=== PATIENT | female | born 1940 | race Caucasian/White ===

== ENCOUNTER 2017-06-13 16:20 | Inpatient (IN) ==
[2017-06-13 17:13] LABS: Bilirubin,Urine Small (Negative); Blood,Urine Moderate (Negative); Clarity,Urine Cloudy (Clear); Color,Urine Dark Yellow (Yellow); Glucose,Urine (UA) Normal (Normal); Ketones,Urine 15 mg/dL (Negative); Leukocyte Esterase,Urine Negative (Negative); Nitrite,Urine Negative (Negative); Protein,Urine 100 mg/dL (Neg-Trace); Specific Gravity,Urine > 1.030 (1.010-1.025); Urobilinogen,Urine Normal (Normal)
[2017-06-13 17:16] LABS: Bacteria,Urine None Seen per hpf (None-Few); Hyaline Casts,Urine None Seen per lpf (None-Few); Squamous Epithelial Cell,Urine Many per lpf (None-Few)
[2017-06-13 17:57] LABS: Uric Acid Crystals,Urine Present
[2017-06-13] MEDS ORDERED: Ondansetron 4 MG/2 ML VIAL IVP ONE (18:41)
[2017-06-13] MEDS ORDERED: 0.9 % Sodium Chloride 500 ML IVC ONE (18:42)
--- NOTE | 2017-06-13 18:43 | Emergency Department Note ---
Disposition Clinical Impression: Pneumonia Qualifiers: Laterality: right Lung location: lower lobe of lung Sepsis Qualifiers: Sepsis type: sepsis due to unspecified organism Qualified Code(s): A41.9 - Sepsis, unspecified organism Disposition: Admitted As Inpatient Condition: Fair Time of Disposition: 20:32 General Adult HPI - General Chief complaint: ED Abdominal Pain Stated complaint: ABD Pain,Dizzy Time Seen by Provider: 06/13/17 18:21 Source: patient Limitations: no limitations Nursing Notes Reviewed: Yes Vital Signs Reviewed: Yes - History of Present Illness HPI Narrative: Patient presents to emergency Department not feeling well. Symptoms started a couple of days ago. She is complaining of sharp pains in the left side of her head. They come and go. They are more prominent yesterday and the day before they are today. Currently not having them. Dry cough. Nausea. States she got dizzy and fell out of bed at one point. She has no abdominal pain and vomiting but she has not had any more. No urinary symptoms. She has some pain and left-sided of her back after she got dizzy and fell. There was no loss of consciousness. She denies any chest pain or difficulty breathing. She is not having abdominal pain or head pain at this time. Pain Scale: 8 - Related Data Home Medications Medication Instructions Recorded Confirmed Aspirin Enteric Coated [Aspirin EC] 81 mg PO DAILY #0 08/17/15 06/13/17 Atorvastatin [Lipitor] 40 mg PO HS #0 08/17/15 06/13/17 Levothyroxine [Synthroid] 100 mcg PO 0630 #0 08/17/15 06/13/17 Mirtazapine [Remeron] 45 mg PO HS #0 08/17/15 06/13/17 Sertraline [Zoloft] 150 mg PO DAILY #0 08/17/15 06/13/17 Albuterol Sulfate [Proair Hfa] 2 puff IH Q4H PRN 06/13/17 06/13/17 Esomeprazole Magnesium [Nexium] 40 mg PO DAILY 06/13/17 06/13/17 Gabapentin [Neurontin] 600 mg PO TID 06/13/17 06/13/17 Ipratropium [Atrovent Inhaler] 2 puff IH QID 06/13/17 06/13/17 Linaclotide [Linzess] 290 mcg PO DAILY 06/13/17 06/13/17 Megestrol Acetate [Megace] 40 mg PO TID 06/13/17 06/13/17 clonazePAM [Klonopin] 1 mg PO BID 06/13/17 06/13/17 Previous Rx's Medication Instructions Recorded Multivitamin [Multi-Day Vitamins] 1 each PO DAILY #30 tablet 08/24/15 Allergies Allergy/AdvReac Type Severity Reaction Status Date / Time No Known Allergies Allergy Verified 08/16/15 21:23 All systems ED: reviewed and negative except as stated. Constitutional: Denies: fever Cardiovascular: Denies: chest pain, palpitations Respiratory: Reports: cough. Denies: dyspnea, wheezes Gastrointestinal: Reports: nausea, vomiting. Denies: abdominal pain, diarrhea Musculoskeletal: Denies: back pain, neck pain Neurological: Reports: weakness. Denies: headache Past Medical History - Past Medical History Attestation: Yes The following information was validated with the patient. 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 Neurologically intact. No facial asymmetry. Abdomen soft. Lungs clear. She has a small abrasion over the left side of her back. No bony tenderness. No tenderness with palpation over the left confucianism. - General Limitations: no limitations General appearance: alert, in no apparent distress - Head Head exam: atraumatic, normocephalic - Eye Eye exam: Present: normal appearance - ENT ENT exam: normal exam, normal oropharynx, mucous membranes dry - Neck Neck exam: Present: normal inspection - Chest Chest inspection: Present: normal inspection, symmetric chest wall rise - Respiratory Respiratory exam: Present: normal lung sounds bilaterally - Cardiovascular Cardiovascular exam: Present: regular rate, normal rhythm, normal heart sounds - Abdominal Exam Abdominal exam: Present: soft, Non-Tender - Back Exam Back exam: Present: full ROM, other. Absent: muscle spasm, vertebral tenderness - Neurological Exam Neurological exam: Present: alert, oriented X3 - Psychiatric Psychiatric exam: Present: normal affect, normal mood - Skin Skin exam: Present: warm, dry Course Course Narrative: Patient with multiple complaints. Patient has a history of chronic renal insufficiency. We will check some basic labs. We will check a sedimentation rate evaluate her for temporal arteritis. Check a head CT. Tenderness in her back is not over her spine. Do not believe she needs any imaging of this area. IV fluids and nausea medicine. We will reevaluate. - Consultations Consultation #1: Dr Ruiz accepts for admission Time: 20:45 Vital Signs Temperature 97.4 F L 06/13/17 16:48 Pulse Rate 73 06/13/17 16:48 Respiratory Rate 16 06/13/17 16:48 Blood Pressure 101/58 06/13/17 16:48 O2 Sat by Pulse Oximetry 100 06/13/17 16:48 Temperature 97.4 F L 06/13/17 16:48 Pulse Rate 102 06/13/17 20:30 Respiratory Rate 20 06/13/17 20:30 Blood Pressure 116/49 06/13/17 20:30 O2 Sat by Pulse Oximetry 98 06/13/17 20:30 Oxygen Delivery Oxygen Delivery Room Air Medical Decision Making - [facility] Narrative Medical decision making narrative: Patient has a right lower infiltrate. She has a white count of 15,000 with an 8 % bandemia. Heart rate in the 90s. She meets sepsis criteria. Starting IV antibiotic. She will be admitted to the hospital. - Medical Records Medical records reviewed: Yes I reviewed the patient's medical records. - Lab Data Lab results reviewed: Yes I reviewed the patient's lab results. Result diagrams: 06/13/17 18:30 06/13/17 18:30 Lab Results 06/13/17 06/13/17 06/13/17 Range/Units 16:50 18:30 18:30 WBC 15.7 H (4.3-11.1) K/mcL RBC 3.86 (3.82-4.97) M/mcL Hgb 12.2 (11.5-15.4) g/dL Hct 36.3 (35.3-44.9) % MCV 94.0 (83.0-100.0) fL MCH 31.6 (28.0-33.3) pg MCHC 33.6 (31.6-35.5) g/dL RDW 12.8 (11.5-14.5) % Plt Count 253 (140-400) K/mcL MPV 10.9 (9.4-12.4) fL Seg Neutrophils % 78.0 % Band Neutrophils % 8.0 H (0-4) % Lymphocytes % 12.0 % Monocytes % 2.0 % Neutrophils # 13.5 H (1.6-8.9) K/mcL Lymphocytes # 1.9 (0.6-4.6) K/mcL Monocytes # 0.3 (0.0-1.3) K/mcL Platelet Estimate Normal (Normal) ESR (0-15) mm/hr Sodium 139 (136-145) mEq/L Potassium 3.6 (3.5-4.5) mEq/L Chloride 105 (98-109) mEq/L Carbon Dioxide 22 (19-29) mEq/L BUN 20 (7-20) mg/dL Creatinine 0.83 (0.57-1.11) mg/dL Est GFR ( Amer) > 60 (> 60) Est GFR (Non-Af Amer) > 60 (> 60) BUN/Creatinine Ratio 24 (6-26) Glucose 105 H (70-99) mg/dL Calculated Osmolality 291 (280-300) Lactic Acid (0.5-2.2) mmol/L Calcium 10.9 H (8.6-10.8) mg/dL Total Bilirubin 0.7 (0.2-1.2) mg/dL Direct Bilirubin 0.4 (0.0-0.5) mg/dL Indirect Bilirubin 0.3 (0.0-1.2) mg/dL AST 14 (5-34) Units/L ALT 10 (0-55) Units/L Alkaline Phosphatase 83 (38-126) Units/L Serum Total Protein 7.5 (6.0-8.3) g/dL Albumin 3.5 (3.5-5.0) g/dL Globulin 4.0 H (2.4-3.5) g/dL Albumin/Globulin Ratio 0.9 L (1.1-2.2) Lipase < 10 (8-78) Units/L Urine Color Dark Yellow (Yellow) Urine Clarity Cloudy A (Clear) Urine pH 6.0 (5.0-8.0) pH Units Ur Specific [place] > 1.030 H (1.010-1.025) Urine Protein 100 H (Neg-Trace) mg/dL Urine Glucose (UA) Normal (Normal) mg/dL Urine Ketones 15 H (Negative) mg/dL Urine Blood Moderate H (Negative) Urine Nitrite Negative (Negative) Urine Bilirubin Small H (Negative) Urine Urobilinogen Normal (Normal) mg/dL Ur Leukocyte Esterase Negative (Negative) Urine Microscopic RBC 3-5 H (0-3) per hpf Urine Microscopic WBC 5-15 H (0-3) per hpf Ur Squamous Epith Cells Many H (None-Few) per lpf Uric Acid Crystals Present Urine Bacteria None Seen (None-Few) per hpf Hyaline Casts None Seen (None-Few) per lpf 06/13/17 06/13/17 Range/Units 18:30 20:24 WBC (4.3-11.1) K/mcL RBC (3.82-4.97) M/mcL Hgb (11.5-15.4) g/dL Hct (35.3-44.9) % MCV (83.0-100.0) fL MCH (28.0-33.3) pg MCHC (31.6-35.5) g/dL RDW (11.5-14.5) % Plt Count (140-400) K/mcL MPV (9.4-12.4) fL Seg Neutrophils % % Band Neutrophils % (0-4) % Lymphocytes % % Monocytes % % Neutrophils # (1.6-8.9) K/mcL Lymphocytes # (0.6-4.6) K/mcL Monocytes # (0.0-1.3) K/mcL Platelet Estimate (Normal) ESR 80 H (0-15) mm/hr Sodium (136-145) mEq/L Potassium (3.5-4.5) mEq/L Chloride (98-109) mEq/L Carbon Dioxide (19-29) mEq/L BUN (7-20) mg/dL Creatinine (0.57-1.11) mg/dL Est GFR ( Amer) (> 60) Est GFR (Non-Af Amer) (> 60) BUN/Creatinine Ratio (6-26) Glucose (70-99) mg/dL Calculated Osmolality (280-300) Lactic Acid 1.3 (0.5-2.2) mmol/L Calcium (8.6-10.8) mg/dL Total Bilirubin (0.2-1.2) mg/dL Direct Bilirubin (0.0-0.5) mg/dL Indirect Bilirubin (0.0-1.2) mg/dL AST (5-34) Units/L ALT (0-55) Units/L Alkaline Phosphatase (38-126) Units/L Serum Total Protein (6.0-8.3) g/dL Albumin (3.5-5.0) g/dL Globulin (2.4-3.5) g/dL Albumin/Globulin Ratio (1.1-2.2) Lipase (8-78) Units/L Urine Color (Yellow) Urine Clarity (Clear) Urine pH (5.0-8.0) pH Units Ur Specific [place] (1.010-1.025) Urine Protein (Neg-Trace) mg/dL Urine Glucose (UA) (Normal) mg/dL Urine Ketones (Negative) mg/dL Urine Blood (Negative) Urine Nitrite (Negative) Urine Bilirubin (Negative) Urine Urobilinogen (Normal) mg/dL Ur Leukocyte Esterase (Negative) Urine Microscopic RBC (0-3) per hpf Urine Microscopic WBC (0-3) per hpf Ur Squamous Epith Cells (None-Few) per lpf Uric Acid Crystals Urine Bacteria (None-Few) per hpf Hyaline Casts (None-Few) per lpf - Radiology Data Chest X-Ray 06/13/17 18:41 IMPRESSION: New small right pleural effusion. Underlying consolidation cannot be excluded. Recommend radiographic follow-up to complete resolution. Prominence of interstitial lung markings may represent interstitial pulmonary edema or chronic interstitial lung disease. D/ / Parveen Schaffer MD / Parveen Schaffer MD Interpreting Provider: Parveen Schaffer MD Head CT 06/13/17 18:41 IMPRESSION: No acute intracranial abnormality. D/ / 06/13/2017 19:48:23 Gisell Watson MD / Ruth Ann Moreno Interpreting Provider: Gisell Watson MD - EKG Data EKG #1 EKG attestation: Yes I reviewed and interpreted this EKG. EKG results narrative: EKG normal sinus rhythm at 98. Normal QRS. Normal intervals. ST segments. Normal axis. QT 326 with a QTC of 381. Critical Care Time Critical Care Time: Yes Total Critical Care Time: 40 Attestation: Critical care performed: Time is exclusive of separately billable procedures. Time includes: direct patient care, patient reassessment, coordination of patient care, interpretation of data (laboratory data, radiology data, and respiratory data), review of patient's medical records, medical consultation and documentation of patient care. Procedures included in critical care time: Procedures excluded from critical care time:
[2017-06-13 18:50] LABS: Hematocrit 36.3 % (35.3-44.9); Hemoglobin 12.2 g/dL (11.5-15.4); Mean Corpuscular HGB Conc 33.6 g/dL (31.6-35.5); Mean Corpuscular Hemoglobin 31.6 pg (28.0-33.3); Mean Platelet Volume 10.9 fL (9.4-12.4); Platelet Count 253 K/mcL (140-400); Red Blood Count 3.86 M/mcL (3.82-4.97); Red Cell Distribution Width 12.8 % (11.5-14.5)
[2017-06-13 19:11] LABS: Lymphocytes # 1.9 K/mcL (0.6-4.6); Monocytes # 0.3 K/mcL (0.0-1.3); Neutrophils # 13.5 K/mcL (1.6-8.9)
[2017-06-13 19:12] LABS: Alanine Aminotransferase 10 Units/L (0-55); Alkaline Phosphatase 83 Units/L (38-126); Aspartate Amino Transferase 14 Units/L (5-34); BUN/Creatinine Ratio 24 (6-26); Bilirubin,Direct 0.4 mg/dL (0.0-0.5); Bilirubin,Indirect 0.3 mg/dL (0.0-1.2); Bilirubin,Total 0.7 mg/dL (0.2-1.2); Blood Urea Nitrogen 20 mg/dL (7-20); Calcium 10.9 mg/dL (8.6-10.8); Carbon Dioxide 22 mEq/L (19-29); Chloride 105 mEq/L (98-109); Glucose 105 mg/dL (70-99); Osmolality,Calculated 291 (280-300); Platelet Estimate Normal (Normal); Potassium 3.6 mEq/L (3.5-4.5); Sodium 139 mEq/L (136-145); Total Protein 7.5 g/dL (6.0-8.3); eGFR For African Americans > 60 (> 60); eGFR For Non-African Americans > 60 (> 60)
[2017-06-13 19:13] LABS: Lipase < 10 Units/L (8-78)
[2017-06-13 19:18] LABS: Albumin 3.5 g/dL (3.5-5.0); Albumin/Globulin Ratio 0.9 (1.1-2.2)
[2017-06-13] MEDS ORDERED: 0.9 % Sodium Chloride 1,000 ML IVC ONE (19:28)
[2017-06-13] MEDS ORDERED: Levofloxacin 500 MG/100 ML 500 MG/100 ML BAG IVPB ONE (20:31)
[2017-06-13] MEDS ORDERED: *HR* OxyCODONE/APAP 5/325 TABLET PO ONE (20:31)
--- NOTE | 2017-06-13 21:05 | Internal Med History&Physical ---
<Barrie Yeh - Last Filed: 06/14/17 01:15> Date of Encounter: 06/13/17 Time of Encounter: 21:04 Assessment and Plan (1) Sepsis Current visit: Yes Status: Acute Patient met 2 SIRS criteria with leukocytosis WBC 15.7 and tachycardia HR 102. ( Patient reports fever 101.5F at home). Lactic acid 1.3 CXR revealed new small right pleural effusion with underlying consolidation cannot be excluded. Prominence of interstitial lung markings may represent interstitial pulmonary edema or chronic interstitial lung disease. Patient started on Levaquin and IVF Continue Levaquin and Rocephin CT chest and abd/plv pending Qualifiers: Sepsis type: sepsis due to unspecified organism Qualified Code(s): A41.9 - Sepsis, unspecified organism (2) Community acquired pneumonia Current visit: Yes Status: Acute CXR revealed new small right pleural effusion with underlying consolidation cannot be excluded. Prominence of interstitial lung markings may represent interstitial pulmonary edema or chronic interstitial lung disease. CT chest pending Patient started on Levaquin and IVF in the ED Continue Levaquin, Rocephin, Duonebs, and incentive spirometry ST consulted due to dysphagia, r/o aspiration PNA Qualifiers: Laterality: right Lung location: unspecified part of lung Qualified Code( s): J18.9 - Pneumonia, unspecified organism (3) UTI (urinary tract infection) Current visit: Yes Status: Acute Urine culture pending Continue antibiotics Qualifiers: Urinary tract infection type: acute cystitis Hematuria presence: with hematuria Qualified Code(s): N30.01 - Acute cystitis with hematuria (4) COPD (chronic obstructive pulmonary disease) Current visit: Yes Status: Acute Continue antibiotics, Duonebs, and Solumedrol Qualifiers: COPD type: COPD with acute exacerbation Qualified Code(s): J44.1 - Chronic obstructive pulmonary disease with (acute) exacerbation (5) Lung cancer Current visit: No Status: Chronic S/p RML and RLL lobectomies and radiation therapy 5 years ago Continue Megace for appetite stimulation Continue to monitor Qualifiers: Laterality: right Lung location: unspecified part of lung Qualified Code( s): C34.91 - Malignant neoplasm of unspecified part of right bronchus or lung (6) Headache Current visit: Yes Status: Resolved CT brain reveals no acute intracranial abnormality. ESR 80 (likley due to sepsis), started on high dose steroids for AECOPD. 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 CT abd/plv pending Fecal occult blood test pending (9) CAD (coronary artery disease) Current visit: Yes Status: Chronic Qualifiers: Coronary Disease-Associated Artery/Lesion type: unspecified vessel or lesion type Circle vs. transplanted heart: [place] heart Associated angina: without angina Qualified Code(s): I25.10 - Atherosclerotic heart disease of [place] coronary artery without angina pectoris (10) HLD (hyperlipidemia) Current visit: Yes Status: Chronic Lipid panel pending Consider stopping home statin if lipid panel within normal limits Qualifiers: Hyperlipidemia type: unspecified Qualified Code(s): E78.5 - Hyperlipidemia , unspecified (11) Hyperthyroidism Current visit: Yes Status: Chronic (12) GERD (gastroesophageal reflux disease) Current visit: Yes Status: Chronic Qualifiers: Esophagitis presence: esophagitis presence not specified Qualified Code(s) : K21.9 - Gastro-esophageal reflux disease without esophagitis (13) Polycystic kidney disease Current visit: Yes Status: Chronic Patient reports grapefruit sized cyst on left kidney CT abd/plv pending Continue to monitor (14) Tobacco dependence Current visit: Yes Status: Chronic Discussed tobacco cessation (15) DVT prophylaxis Current visit: Yes Status: Acute SCDs Internal Medicine - H&P: HPI Chief complaint: Dizziness Admitted From: Home Plans for Post Hospital Care: Home History of present illness: Ms. Ortiz is a 77 year old female with a PMH of lung cancer s/p RML and RLL lobectomies and radiation therapy 5 years ago, COPD, coronary artery disease, polycystic kidney disease, hyperthyroidism, and tobacco dependence that presented c/o dizziness, headache, and abd pain for the past 2 weeks. Headache is described as an intermittent, sharp pain in the left side of her head that feels like needles. Patient reports associated nausea, non-productive cough, and abrasion on left back after fall out of bed secondary to dizziness. She reported fever 101.5F last PM. Headache and abd pain have now resolved. She reports 42 lbs weight loss in 8 months despite Megace for appetite stimulation, intermittent blood in stool that has now resolved, and denies ever having a colonoscopy in the past. Patient denies chills, CP, SOB, vomiting, diarrhea, constipation, dysuria, loss of consciousness, or leg edema. In the ED, patient meet sepsis criteria with leukocytosis WBC 15.7 and tachycardia HR 102. CXR revealed new small right pleural effusion with underlying consolidation cannot be excluded. Prominence of interstitial lung markings may represent interstitial pulmonary edema or chronic interstitial lung disease. Patient was started on Levaquin and IVF in the ED. Past Med Surg Social Fam HX - Past Medical History Medical history: cancer, COPD, coronary artery disease, GERD, hyperlipidemia, thyroid disease Psychiatric history: anxiety, depression - Past Surgical History Surgical History: cholecystectomy, hysterectomy - Social History Smoking Status: Current every day smoker Smokeless Tobacco Status: No Alcohol use: none Drug use: marijuana - Family History Mother Living Status: Hx Family Neurologic Disorders: Yes (CVA) Internal Medicine - H&P: Meds Aspirin Enteric Coated [Aspirin EC] 81 mg PO DAILY #0 08/17/15 [History] Atorvastatin [Lipitor] 40 mg PO HS #0 08/17/15 [History] Levothyroxine [Synthroid] 100 mcg PO 0630 #0 08/17/15 [History] Mirtazapine [Remeron] 45 mg PO HS #0 08/17/15 [History] Sertraline [Zoloft] 150 mg PO DAILY #0 08/17/15 [History] Multivitamin [Multi-Day Vitamins] 1 each PO DAILY #30 tablet 08/24/15 [Rx] Albuterol Sulfate [Proair Hfa] 2 puff IH Q4H PRN 06/13/17 [History] Esomeprazole Magnesium [Nexium] 40 mg PO DAILY 06/13/17 [History] Gabapentin [Neurontin] 600 mg PO TID 06/13/17 [History] Ipratropium [Atrovent Inhaler] 2 puff IH QID 06/13/17 [History] Linaclotide [Linzess] 290 mcg PO DAILY 06/13/17 [History] Megestrol Acetate [Megace] 40 mg PO TID 06/13/17 [History] clonazePAM [Klonopin] 1 mg PO BID 06/13/17 [History] 3 Allergy/AdvReac Type Severity Reaction Status Date / Time No Known Allergies Allergy Verified 08/16/15 21:23 All Systems PM: A 10-system review of systems was performed and is negative for pertinent findings except as documented above in the HPI. - Constitutional Constitutional: anorexia, fatigue, fever(s), falls, lethargy, malaise, weakness , weight loss, no chills, no weight gain - EENT Eyes: no change in vision, no loss of peripheral vision, no loss of vision, no pain, no tunnel vision Nose, mouth and throat: dysphagia, sore throat, no mouth lesions, no nasal congestion, no sinus pressure - Cardiovascular Cardiovascular ROS IM: dyspnea, lightheadedness, no chest pain, no palpitations - Respiratory Respiratory: cough, dyspnea, wheezing, chest congestion, no change in phlegm color - Gastrointestinal Gastrointestinal: abdominal pain, constipation, hematochezia, no diarrhea, no hematemesis, no melena, no nausea, no vomiting - Genitourinary Genitourinary: hematuria, no dysuria, no urinary frequency, no urinary urgency Menstruation: post hysterectomy - Musculoskeletal Musculoskeletal ROS IM: no arthralgias, no back pain, no muscle cramps, no myalgias, no neck pain, no numbness, no tingling - Integumentary Integumentary IM: new lesions (abrasion left back), no erythema, no rash - Neurological Neurological ROS: dizziness, headache(s), weakness, no confusion, no numbness, no tingling - Psychiatric Psychiatric: no anxiety, no depression - Endocrine Endocrine IM: no polydipsia, no polyphagia, no polyuria - Hematologic/Lymphatic Hematologic/Lymphatic: no easy bleeding, no easy bruising - Constitutional Vitals: Temp Pulse Resp BP Pulse Ox 97.4 F L 102 20 116/49 98 06/13/17 16:48 06/13/17 20:30 06/13/17 20:30 06/13/17 20:30 06/13/17 20:30 General appearance: Present: cachectic, cooperative, A&O X 3, pleasant, no acute distress, underweight, loss of weight, answers questions appropriately - Head Head exam: Present: atraumatic, normal inspection, normocephalic Additional comments: temporal wasting - Eye Eye exam: Present: EOMI, PERRL - ENT ENT exam: Present: mucous membranes dry, normal oropharynx - Neck Neck exam general surgery: Present: normal inspection, supple. Absent: tenderness - Respiratory Respiratory exam: Present: decreased breath sounds (R>L). Absent: accessory muscle use, respiratory distress, wheezes - Cardiovascular Cardiovascular exam: Present: +S1, +S2, tachycardia - GI/Abdominal GI/Abdominal exam: Present: normal bowel sounds, soft, tenderness (mild diffuse TTP). Absent: distended, firm - Extremities Exam Extremities exam: Present: warm, radial pulses palpable and symmetrical. Absent : pedal edema, tenderness Additional comments: loss of muscle mass - Back Exam Back exam: Absent: paraspinal tenderness, tenderness, vertebral tenderness Additional comments: 1 cm abrasion over left flank, no bruising - Neurological Exam Neurological exam: Present: alert, oriented X3, no focal deficits, strengths equal and symetr throughout. Absent: speech deficit - Expanded Neurological Exam Patient oriented to: Present: person, place, time Speech: Present: fluid speech Neuro motor strength exam: LUE: 5, RUE: 5, LLE: 5, RLE: 5 Coma Scale Eye Opening: Spontaneous Coma Scale Motor Response: Obeys Commands Coma Scale Verbal Response: Oriented Coma Scale Total: 15 - Psychiatric Psychiatric exam: Present: normal affect, normal mood - Skin Skin exam: Present: dry, warm Additional comments: 1 cm abrasion over left flank, no bruising, loss of subcuticular fat Internal Med - H&P Results - Labs CBC & Chem 7: 06/13/17 18:30 06/13/17 18:30 - EKG Data -: EKG Interpreted by Myself EKG shows normal: sinus rhythm (NSR HR 98. Normal QRS. Normal intervals. Normal ST segments. Normal axis. QT 326 with a QTC of 381.) Rate: tachycardia - Impressions ITS Impressions Chest X-Ray 06/13/17 18:41 IMPRESSION: New small right pleural effusion. Underlying consolidation cannot be excluded. Recommend radiographic follow-up to complete resolution. Prominence of interstitial lung markings may represent interstitial pulmonary edema or chronic interstitial lung disease. D/ / Parveen Schaffer MD / Parveen Schaffer MD Interpreting Provider: Parveen Schaffer MD Head CT 06/13/17 18:41 IMPRESSION: No acute intracranial abnormality. D/ / 06/13/2017 19:48:23 Gisell Watson MD / Ruth Ann Moreno Interpreting Provider: Gisell Watson MD <[email or web address] - Last Filed: 06/14/17 03:59> Date of Encounter: 06/14/17 Internal Medicine - H&P: HPI History of present illness: Ms. Ortiz is a 77 year old female All Systems PM: A 10-system review of systems was performed and is negative for pertinent findings except as documented above in the HPI. - Constitutional Vitals: Temp Pulse Resp BP Pulse Ox 97.7 F 99 15 118/23 93 06/13/17 21:39 06/13/17 21:39 06/13/17 23:39 06/13/17 21:39 06/13/17 23:39 Internal Med - H&P Results - Labs CBC & Chem 7: 06/13/17 18:30 06/13/17 18:30 - Attending Attestation I have seen and examined the patient independently. I have discussed with resident Dr Yeh regarding the management plan. Agree with the documentation. Patient admitted for abdominal pain, pneumonia, weight loss. History of lung cancer. Will place patient on antibiotic, steroid, bronchodilator for COPD exacerbation and pneumonia. patient complain left sided headache, with elevated ESR, need suspect giant cell arthritis. Patient denies any vision changes. Her elevated ESR can also explained by pneumonia or sepsis. Will closely monitor patient. And the patient is already on steroid, which is for COPD exacerbation. We will order CT chest, abdominal, and pelvis with contrast to rule out tumor metastasis.
[2017-06-13] MEDS ORDERED: Ondansetron 4 MG/2 ML VIAL IVP PRN (21:46)
[2017-06-13 22:16] LABS: INR 1.3; Prothrombin Time 13.7 Seconds (9.4-12.1)
[2017-06-13 22:19] LABS: Activated Partial Thrombo Time 28.5 Seconds (26.0-36.0)
[2017-06-13] MEDS: Mirtazapine 15 MG TABLET PO SCH (22:24)
[2017-06-13] MEDS: clonazePAM 1 MG TABLET PO SCH (22:25)
[2017-06-13] MEDS: 0.9 % Sodium Chloride 1,000 ML IVC SCH (22:25)
[2017-06-13] MEDS: Nicotine 14 MG PATCH.TD24 TD SCH (22:25)
[2017-06-13] MEDS: Ipratropium/Albuterol Neb 3 ML IH SCH (23:38)
[2017-06-14] MEDS: Ipratropium/Albuterol Neb 3 ML IH SCH ×4 (04:16→23:12)
[2017-06-14] MEDS: *HR* HYDROcodone/Acet 5/325 mg TABLET PO PRN (04:50)
[2017-06-14] MEDS: MethylPREDNISolone 40 MG/ML VIAL IVP SCH ×3 (04:50→21:19)
[2017-06-14 04:58] LABS: Basophils % 0.4 %; Eosinophils # 0.1 K/mcL (0.0-0.6); Eosinophils % 0.5 %; Hematocrit 28.8 % (35.3-44.9); Immature Granulocytes % 0.9 % (0-4); Lymphocytes # 1.5 K/mcL (0.6-4.6); Lymphocytes % 14.4 %; Mean Corpuscular HGB Conc 33.3 g/dL (31.6-35.5); Mean Corpuscular Hemoglobin 31.4 pg (28.0-33.3); Mean Corpuscular Volume 94.1 fL (83.0-100.0); Mean Platelet Volume 10.7 fL (9.4-12.4); Monocytes # 0.8 K/mcL (0.0-1.3); Monocytes % 7.4 %; Platelet Count 193 K/mcL (140-400); Red Blood Count 3.06 M/mcL (3.82-4.97); Red Cell Distribution Width 12.9 % (11.5-14.5); Segmented Neutrophils % 76.4 %
[2017-06-14 05:00] LABS: Hemoglobin 9.6 g/dL (11.5-15.4)
[2017-06-14 05:13] LABS: Alanine Aminotransferase 11 Units/L (0-55); Albumin/Globulin Ratio 0.9 (1.1-2.2); Alkaline Phosphatase 66 Units/L (38-126); Aspartate Amino Transferase 14 Units/L (5-34); BUN/Creatinine Ratio 22 (6-26); Bilirubin,Total 0.4 mg/dL (0.2-1.2); Blood Urea Nitrogen 14 mg/dL (7-20); Carbon Dioxide 19 mEq/L (19-29); Chloride 114 mEq/L (98-109); Glucose 93 mg/dL (70-99); Osmolality,Calculated 290 (280-300); Potassium 3.4 mEq/L (3.5-4.5); Sodium 140 mEq/L (136-145); Triglycerides 48 mg/dL (< 150); eGFR For African Americans > 60 (> 60); eGFR For Non-African Americans > 60 (> 60)
[2017-06-14 05:16] LABS: Albumin 2.6 g/dL (3.5-5.0); Calcium 9.1 mg/dL (8.6-10.8); Cholesterol 66 mg/dL (< 200); Total Protein 5.6 g/dL (6.0-8.3)
[2017-06-14 05:18] LABS: Platelet Estimate Normal (Normal)
[2017-06-14 05:30] LABS: Chol/HDL Ratio 2.9 (0-4.9); HDL Cholesterol 23 mg/dL (40-59); LDL Cholesterol,Calculated 33 mg/dL (0-99)
[2017-06-14] MEDS: Levofloxacin 750 MG/150 ML 750 MG/150 ML BAG IVPB SCH (09:46)
[2017-06-14] MEDS: Multivit/Ca/Min/Fe/FA 1 TAB TABLET PO SCH (09:47)
[2017-06-14] MEDS: Aspirin Enteric Coated 81 MG Tablet PO SCH (09:47)
[2017-06-14] MEDS: Gabapentin 300 MG CAPSULE PO SCH ×3 (09:47→21:17)
[2017-06-14] MEDS: 0.9 % Sodium Chloride 1,000 ML IVC SCH ×2 (09:48→21:19)
[2017-06-14] MEDS: Nicotine 14 MG PATCH.TD24 TD SCH ×2 (09:48→09:56)
[2017-06-14] MEDS: clonazePAM 1 MG TABLET PO SCH ×2 (09:51→21:17)
--- NOTE | 2017-06-14 10:01 | Internal Med Progress Note ---
Addendum entered and electronically signed by Arnold Dunlap DO 06/14/17 15: 54: GI Recommends outpatient follow up, will not see in hospital. Original Note: <Arnold Dunlap - Last Filed: 06/14/17 14:12> Date of Encounter: 06/14/17 Time of Encounter: 08:30 - Assessment and plan (1) Sepsis Current Visit: Yes Status: Acute Assessment and plan: Sepsis secondary to community acquired pneumonia, improved criteria: Tachycardia, hypotension, Tachypnea + Pneumonia WBC 10.5, ESR 80, hypotension and is improving with fluids Patient was started on Levaquin and ceftriaxone on admission We will discontinue the ceftriaxone, continue the Levaquin day 2 Qualifiers: Sepsis type: sepsis due to unspecified organism Qualified Code(s): A41.9 - Sepsis, unspecified organism (2) Community acquired pneumonia Current Visit: Yes Status: Acute Assessment and plan: Community acquired pneumonia in the posterior right upper lung and left lung present on CT scan Patient was started on Levaquin, day 2 Vital signs becoming more stable We will continue to monitor the patient's respiratory status Qualifiers: Laterality: right Lung location: unspecified part of lung Qualified Code( s): J18.9 - Pneumonia, unspecified organism (3) Lung cancer Current Visit: No Status: Chronic Assessment and plan: History of lung cancer, status post right middle lobe and right lower lobectomy Repeat CT demonstrates no evidence of metastatic disease at this time Patient does report significant weight loss and past months Outpatient PET scan may be indicated Qualifiers: Laterality: right Lung location: unspecified part of lung Qualified Code( s): C34.91 - Malignant neoplasm of unspecified part of right bronchus or lung (4) COPD (chronic obstructive pulmonary disease) Current Visit: Yes Status: Acute Assessment and plan: COPD with chronic emphysematous changes, acute exacerbation CT demonstrates prominent interstitial lung disease as well The patient has been treated with steroids and antibiotics Levaquin day 2, transition to by mouth prednisone Continue to monitor respiratory status Qualifiers: COPD type: COPD with acute exacerbation Qualified Code(s): J44.1 - Chronic obstructive pulmonary disease with (acute) exacerbation (5) Renal cyst Current Visit: Yes Status: Chronic Assessment and plan: Left renal cyst, 8.9 x 7.7 cm without obstruction or hydronephrosis At this time there is no indication for intervention We will arrange for outpatient follow-up with urology in order to determine long -term plan (6) Blood in stool Current Visit: Yes Status: Acute Assessment and plan: Bright red blood per rectum, chronic Patient admits to frequent streaks of blood in stool Denies connie blood in toilet Patient says last colonoscopy was 4-5 years ago and was normal at that time Has attempted follow up scope but apparently could not tolerate go-litely We will consult GI (7) Severe protein-calorie malnutrition Current Visit: Yes Status: Acute Assessment and plan: Patient admits to +42lbs weight loss in 8 months Attempted megace for weight gain GI Consult (8) Anemia Current Visit: Yes Status: Acute Assessment and plan: Patient has mild anemia, which is below previous baseline MCV 94.1, consistent with malnutrition GI is on board Qualifiers: Anemia type: unspecified type Qualified Code(s): D64.9 - Anemia, unspecified (9) DVT prophylaxis Current Visit: Yes Status: Acute Assessment and plan: SCDs - Subjective Interval history: The patient is resting comfortably in bed at time of examination. She says that she is breathing much easier than she was previously, and says that much for cough has resolved. She has no acute complaints at this time. - Constitutional Vitals: Temp Pulse Resp BP Pulse Ox 98.1 F 88 18 106/51 97 06/14/17 07:45 06/14/17 07:45 06/14/17 07:45 06/14/17 07:45 06/14/17 07:45 General appearance: Present: cachectic, cooperative, A&O X 3, pleasant, no acute distress, underweight, loss of weight, answers questions appropriately - Head Head exam: Present: atraumatic, normocephalic - Eye Eye exam: Present: PERRL, conjuntiva pink, sclera anicteric Pupils: Present: PERRL - Neck Neck exam general surgery: Present: supple, trachea midline. Absent: lymphadenopathy - Respiratory Respiratory exam: Present: decreased breath sounds (R>L s/p resection), rales. Absent: accessory muscle use, rhonchi, wheezes - Cardiovascular Cardiovascular exam: Present: RRR, +S1, +S2, tachycardia. Absent: diastolic murmur, gallop, rubs, systolic murmur - GI/Abdominal GI/Abdominal exam: Present: normal bowel sounds, soft, no peritoneal signs. Absent: distended, tenderness - Extremities Exam Extremities exam: Present: warm, radial pulses palpable and symmetrical. Absent : calf tenderness, cyanotic, pedal edema - Neurological Exam Neurological exam: Present: CN II-XII intact, oriented X3, no focal deficits. Absent: pronater drift, facial droop, speech deficit Additional comments: Abnormal affect - Skin Skin exam: Present: dry, intact Internal Medicine: Result - Labs CBC & Chem 7: 06/14/17 04:48 06/14/17 04:48 Labs: Short CBC 06/14/17 Range/Units 04:48 WBC 10.5 (4.3-11.1) K/mcL Hgb 9.6 L D (11.5-15.4) g/dL Hct 28.8 L (35.3-44.9) % Plt Count 193 (140-400) K/mcL Neutrophils # 8.0 (1.6-8.9) K/mcL BMP 06/14/17 04:48 Sodium 140 Potassium 3.4 L Chloride 114 H Carbon Dioxide 19 BUN 14 Creatinine 0.63 Glucose 93 Calcium 9.1 D Liver Function 06/14/17 Range/Units 04:48 Total Bilirubin 0.4 (0.2-1.2) mg/dL AST 14 (5-34) Units/L ALT 11 (0-55) Units/L Alkaline Phosphatase 66 (38-126) Units/L Albumin 2.6 L D (3.5-5.0) g/dL - ABG Interpretation ABG results: PT/INR, D-dimer PT 13.7 Seconds (9.4-12.1) H 06/13/17 21:56 - Impressions Impressions Abdomen/Pelvis CT 06/14/17 08:00 IMPRESSION: 1. Airspace consolidation in the posterior right upper lobe likely represents pneumonia. 2. Scattered ground-glass nodular densities in the peripheral left lung are also likely related to the pneumonia. Recommend follow-up CT scan of the chest after resolution of the pneumonia in approximately 3 months. 3. No evidence of metastatic disease. 4. Status post right middle lobe and right lower lobectomy. D/ / Bony Geronimo MD / Bony Geronimo MD Interpreting Provider: Bony Geronimo MD Chest CT 06/14/17 08:00 IMPRESSION: 1. Airspace consolidation in the posterior right upper lobe likely represents pneumonia. 2. Scattered ground-glass nodular densities in the peripheral left lung are also likely related to the pneumonia. Recommend follow-up CT scan of the chest after resolution of the pneumonia in approximately 3 months. 3. No evidence of metastatic disease. 4. Status post right middle lobe and right lower lobectomy. D/ / Bony Geronimo MD / Bony Geronimo MD Interpreting Provider: Bony Geronimo MD Consult Discharge Plan - Plan Referrals: Gurinder Fermin MD [Primary Care Provider] - <William Azul - Last Filed: 06/14/17 17:20> Date of Encounter: 06/14/17 - Assessment and plan (1) Pneumonia Current Visit: Yes Status: Suspected Qualifiers: Pneumonia type: due to Pneumococcus Laterality: right Lung location: lower lobe of lung Qualified Code(s): J13 - Pneumonia due to Streptococcus pneumoniae (2) Anemia Current Visit: Yes Status: Acute Qualifiers: Anemia type: other cause Other causes of anemia: chronic disease, other Qualified Code(s): D63.8 - Anemia in other chronic diseases classified elsewhere (3) COPD (chronic obstructive pulmonary disease) Current Visit: Yes Status: Acute Qualifiers: COPD type: COPD with acute exacerbation Qualified Code(s): J44.1 - Chronic obstructive pulmonary disease with (acute) exacerbation (4) Sepsis Current Visit: Yes Status: Acute Qualifiers: Sepsis type: sepsis due to unspecified organism Qualified Code(s): A41.9 - Sepsis, unspecified organism (5) Severe protein-calorie malnutrition Current Visit: Yes Status: Acute (6) CAD (coronary artery disease) Current Visit: Yes Status: Chronic Qualifiers: Coronary Disease-Associated Artery/Lesion type: [place] artery [place] vs. transplanted heart: [place] heart Associated angina: without angina Qualified Code(s): I25.10 - Atherosclerotic heart disease of [place] coronary artery without angina pectoris (7) GERD (gastroesophageal reflux disease) Current Visit: Yes Status: Chronic Qualifiers: Esophagitis presence: esophagitis presence not specified Qualified Code(s) : K21.9 - Gastro-esophageal reflux disease without esophagitis (8) HLD (hyperlipidemia) Current Visit: Yes Status: Chronic Qualifiers: Hyperlipidemia type: mixed hyperlipidemia Qualified Code(s): E78.2 - Mixed hyperlipidemia (9) Tobacco abuse Current Visit: Yes Status: Acute - Constitutional Vitals: Temp Pulse Resp BP Pulse Ox 97.6 F 90 18 109/48 96 06/14/17 15:31 06/14/17 15:31 06/14/17 16:11 06/14/17 15:31 06/14/17 16:11 Internal Medicine: Result - Labs CBC & Chem 7: 06/14/17 04:48 06/14/17 04:48 Labs: Short CBC 06/14/17 Range/Units 04:48 WBC 10.5 (4.3-11.1) K/mcL Hgb 9.6 L D (11.5-15.4) g/dL Hct 28.8 L (35.3-44.9) % Plt Count 193 (140-400) K/mcL Neutrophils # 8.0 (1.6-8.9) K/mcL BMP 06/14/17 04:48 Sodium 140 Potassium 3.4 L Chloride 114 H Carbon Dioxide 19 BUN 14 Creatinine 0.63 Glucose 93 Calcium 9.1 D Liver Function 06/14/17 Range/Units 04:48 Total Bilirubin 0.4 (0.2-1.2) mg/dL AST 14 (5-34) Units/L ALT 11 (0-55) Units/L Alkaline Phosphatase 66 (38-126) Units/L Albumin 2.6 L D (3.5-5.0) g/dL - ABG Interpretation ABG results: PT/INR, D-dimer PT 13.7 Seconds (9.4-12.1) H 06/13/17 21:56 - Impressions Impressions Abdomen/Pelvis CT 06/14/17 08:00 IMPRESSION: 1. Airspace consolidation in the posterior right upper lobe likely represents pneumonia. 2. Scattered ground-glass nodular densities in the peripheral left lung are also likely related to the pneumonia. Recommend follow-up CT scan of the chest after resolution of the pneumonia in approximately 3 months. 3. No evidence of metastatic disease. 4. Status post right middle lobe and right lower lobectomy. D/ / Bony Geronimo MD / Bony Geronimo MD Interpreting Provider: Bony Geronimo MD Chest CT 06/14/17 08:00 IMPRESSION: 1. Airspace consolidation in the posterior right upper lobe likely represents pneumonia. 2. Scattered ground-glass nodular densities in the peripheral left lung are also likely related to the pneumonia. Recommend follow-up CT scan of the chest after resolution of the pneumonia in approximately 3 months. 3. No evidence of metastatic disease. 4. Status post right middle lobe and right lower lobectomy. D/ / Bony Geronimo MD / Bony Geronimo MD Interpreting Provider: Bony Geronimo MD - Attending Attestation I examined this patient and my medical decision-making was reviewed with the Resident Physician on 06/14/17. I agree with the documented findings, disposition and treatment plan as described except to the extent set forth below. Ms Ortiz is currently admitted for acute pneumonia. She remains moderate to high risk due to potential for worsening respiratory status. Ms Ortiz is feeling somewhat better after treatment. No fever or chills. No CP at this time. Has had weight loss and constipation. Has had some GI work up in the past. Spoke with GI and will pursue further work up as outpatient. Exam Alert. Comfortable Mucus membranes dry Heart reg - slightly tachy still. Sinus tach on monitor Lungs with some on R Abd soft No edema I/P 1. PNA 2. Weight loss Further diagnoses and plan as above.
[2017-06-14] MEDS ORDERED: Nicotine 14 MG PATCH.TD24 TD PRN (13:49)
--- NOTE | 2017-06-14 15:37 | Electrocardiograph Report ---
[place] [id number] Test Date: 2017-06-13 Pat Name: Ruth Ortiz Department: 102 Room: [facility] Gender: F Press Hand Supervisor: Ekp : 1940 Requested By: Renuka See Order Number: [id number] Reading MD: Massimo Harris Measurements Intervals [place] Rate: 98 P: 54 NM: 124 QRS: 61 QRSD: 98 T: 59 QT: 326 QTc: 381 Interpretive Statements SINUS RHYTHM Electronically Signed On 06-14-2017 15:36:23 EDT by Massimo Harris
[2017-06-14] MEDS: Mirtazapine 15 MG TABLET PO SCH (21:18)
[2017-06-14] MEDS ORDERED: methylPREDNISolone 125 MG/2 ML VIAL IVP ONE (21:37)
[2017-06-15 04:22] LABS: BUN/Creatinine Ratio 17 (6-26); Blood Urea Nitrogen 11 mg/dL (7-20); Calcium 9.3 mg/dL (8.6-10.8); Carbon Dioxide 20 mEq/L (19-29); Chloride 116 mEq/L (98-109); Glucose 188 mg/dL (70-99); Osmolality,Calculated 298 (280-300); Sodium 142 mEq/L (136-145); eGFR For African Americans > 60 (> 60); eGFR For Non-African Americans > 60 (> 60)
[2017-06-15 04:26] LABS: Basophils % 0.1 %; Eosinophils % 0.1 %; Hemoglobin 9.3 g/dL (11.5-15.4); Immature Granulocytes % 0.5 % (0-4); Immature Platelets 4.8 % (1.1-6.1); Lymphocytes # 0.4 K/mcL (0.6-4.6); Lymphocytes % 4.3 %; Mean Corpuscular HGB Conc 33.2 g/dL (31.6-35.5); Mean Corpuscular Hemoglobin 31.6 pg (28.0-33.3); Mean Corpuscular Volume 95.2 fL (83.0-100.0); Mean Platelet Volume 11.4 fL (9.4-12.4); Monocytes # 0.3 K/mcL (0.0-1.3); Neutrophils # 7.7 K/mcL (1.6-8.9); Platelet Count 275 K/mcL (140-400); Red Blood Count 2.94 M/mcL (3.82-4.97)
[2017-06-15] MEDS: Ipratropium/Albuterol Neb 3 ML IH SCH ×3 (04:33→16:11)
[2017-06-15 04:42] LABS: Potassium 4.2 mEq/L (3.5-4.5)
[2017-06-15 04:45] LABS: Platelet Estimate Normal (Normal)
[2017-06-15] MEDS: MethylPREDNISolone 40 MG/ML VIAL IVP SCH ×2 (05:35→14:08)
[2017-06-15] MEDS: clonazePAM 1 MG TABLET PO SCH ×2 (09:54→20:44)
[2017-06-15] MEDS: Gabapentin 300 MG CAPSULE PO SCH ×2 (09:54→14:09)
[2017-06-15] MEDS: Aspirin Enteric Coated 81 MG Tablet PO SCH (09:54)
[2017-06-15] MEDS: Multivit/Ca/Min/Fe/FA 1 TAB TABLET PO SCH (09:54)
[2017-06-15] MEDS: Levofloxacin 750 MG/150 ML 750 MG/150 ML BAG IVPB SCH (09:55)
--- NOTE | 2017-06-15 13:16 | Discharge Summary ---
<Arnold Dunlap - Last Filed: 06/15/17 19:31> Date of Encounter: 06/15/17 Time of Encounter: 09:15 - Discharge Diagnosis (1) Sepsis Priority: Primary Status: Acute Qualifiers: Sepsis type: sepsis due to unspecified organism Qualified Code(s): A41.9 - Sepsis, unspecified organism (2) Community acquired pneumonia Priority: Secondary Status: Acute Qualifiers: Laterality: right Lung location: unspecified part of lung Qualified Code( s): J18.9 - Pneumonia, unspecified organism (3) Lung cancer Priority: Secondary Status: Chronic Qualifiers: Laterality: right Lung location: unspecified part of lung Qualified Code( s): C34.91 - Malignant neoplasm of unspecified part of right bronchus or lung (4) COPD (chronic obstructive pulmonary disease) Priority: Secondary Status: Acute Qualifiers: COPD type: COPD with acute exacerbation Qualified Code(s): J44.1 - Chronic obstructive pulmonary disease with (acute) exacerbation (5) Renal cyst Priority: Secondary Status: Chronic (6) Blood in stool Priority: Secondary Status: Acute (7) Severe protein-calorie malnutrition Priority: Secondary Status: Acute (8) Anemia Priority: Secondary Status: Acute Qualifiers: Anemia type: other cause Other causes of anemia: chronic disease, other Qualified Code(s): D63.8 - Anemia in other chronic diseases classified elsewhere (9) DVT prophylaxis Priority: Secondary Status: Acute - Discharge Medications Prescriptions: Ipratropium/Albuterol Neb [Duoneb] 3 ml IH Q6HR PRN 7 Days inhsol PRN Reason: Wheezing levoFLOXacin [Levaquin] 750 mg PO DAILY #7 tablet Levothyroxine [Synthroid] 75 mcg PO DAILY #30 tablet predniSONE [PredniSONE] 40 mg PO DAILY #6 tablet Home Medications: Aspirin Enteric Coated [Aspirin EC] 81 mg PO DAILY #0 08/17/15 [History] Atorvastatin [Lipitor] 40 mg PO HS #0 08/17/15 [History] Mirtazapine [Remeron] 45 mg PO HS #0 08/17/15 [History] Sertraline [Zoloft] 150 mg PO DAILY #0 08/17/15 [History] Multivitamin [Multi-Day Vitamins] 1 each PO DAILY #30 tablet 08/24/15 [Rx] Albuterol Sulfate [Proair Hfa] 2 puff IH Q4H PRN 06/13/17 [History] Esomeprazole Magnesium [Nexium] 40 mg PO DAILY 06/13/17 [History] Ipratropium [ATROVENT Inhaler] 2 puff IH QID 06/13/17 [History] Linaclotide [Linzess] 290 mcg PO DAILY 06/13/17 [History] Megestrol Acetate [Megace] 40 mg PO TID 06/13/17 [History] clonazePAM [Klonopin] 1 mg PO BID 06/13/17 [History] Ipratropium/Albuterol Neb [Duoneb] 3 ml IH Q6HR PRN 7 Days inhsol 06/15/17 [Rx] Levothyroxine [Synthroid] 75 mcg PO DAILY #30 tablet 06/15/17 [Rx] levoFLOXacin [Levaquin] 750 mg PO DAILY #7 tablet 06/15/17 [Rx] predniSONE [PredniSONE] 40 mg PO DAILY #6 tablet 06/15/17 [Rx] Allergies/Adverse Reactions: 3 Allergy/AdvReac Type Severity Reaction Status Date / Time No Known Allergies Allergy Verified 08/16/15 21:23 Date of admission: 06/14/17 04:02 Primary care physician: Gurinder Fermin MD Discharging clinician: Arnold Dunlap Anticipated date of discharge: 06/15/17 - Patient Status Disposition: Home Health Service Condition: Fair Overall status at discharge: patient is progressing back to baseline - Discharge Instructions Instructions: Carbidopa/Levodopa (By mouth), Levothyroxine (By mouth), Ipratropium (By breathing), Prednisone (By mouth), Sepsis (DC), Pneumonia (DC) Follow Up With: Gurinder Fermin MD [Primary Care Provider] - (REQUEST SENT. PATIENT NEEDS TO CALL AND FOLLOW UP ON APPOINTMENT TIME) Additional Instructions: Patient should decrease dose of levothyroxine 75 g Patient should follow up with GI as an outpatient Patient continues DuoNeb when necessary every 4-6 hours Patient states 3 more days of prednisone Patient to take 7 more days of antibiotic - Diet and Activity Activity: as per physical therapy, increase activity as tolerated Diet: regular diet Hospital course: Ms. Ortiz is a 77 year old female with history of lung cancer status post right middle lobe and right lower lobe lobectomies and radiation therapy 5 years ago, COPD, coronary artery disease, polycystic kidney disease, hyperthyroidism, tobacco dependence presented to the ED with complaints of dizziness, headache, abdominal pain for the past 2 weeks. She additionally complained of nonproductive cough and fall secondary to dizziness. She said that she had fevers of 101.5 and she had a headache which had resolved. The patient also complained of 42 pounds weight loss in the past 8 months despite Megace, however this is not supported by documentation. In the ED the patient was found to have a white blood cell count 15.7 and tachycardia, chest x-ray showed a small right pleural effusion with underlying consolidation. She is admitted to the hospital for treatment of sepsis and community acquired pneumonia with possible COPD exacerbation. He was given IV Levaquin, scheduled DuoNeb's, and steroid therapy. The patient began to feel better, however remained tachycardic. She underwent CT angiography of the chest, and will be discharged home if negative. - Time Spent with Patient Total time spent providing and/or coordinating discharge services: - Constitutional Vitals: Temp Pulse Resp BP Pulse Ox 97.9 F 77 16 128/62 97 06/15/17 07:43 06/15/17 07:43 06/15/17 11:04 06/15/17 07:43 06/15/17 11:04 General appearance: Present: cachectic, cooperative, A&O X 3, pleasant, no acute distress, underweight, loss of weight, answers questions appropriately Exam: - Head Head exam: Present: atraumatic, normocephalic - Eye Eye exam: Present: PERRL, conjuntiva pink, sclera anicteric Pupils: Present: PERRL - Neck Neck exam general surgery: Present: supple, trachea midline. Absent: lymphadenopathy - Respiratory Respiratory exam: Present: decreased breath sounds (R>L s/p resection), rales. Absent: accessory muscle use, rhonchi, wheezes - Cardiovascular Cardiovascular exam: Present: RRR, +S1, +S2, tachycardia. Absent: diastolic murmur, gallop, rubs, systolic murmur - GI/Abdominal GI/Abdominal exam: Present: normal bowel sounds, soft, no peritoneal signs. Absent: distended, tenderness - Extremities Exam Extremities exam: Present: warm, radial pulses palpable and symmetrical. Absent : calf tenderness, cyanotic, pedal edema - Neurological Exam Neurological exam: Present: CN II-XII intact, oriented X3, no focal deficits. Absent: pronater drift, facial droop, speech deficit Additional comments: Abnormal affect - Skin Skin exam: Present: dry, intact <William Azul - Last Filed: 06/15/17 20:06> Date of Encounter: 06/15/17 - Discharge Diagnosis (1) Pneumonia Priority: Primary Status: Suspected Qualifiers: Pneumonia type: due to Pneumococcus Laterality: right Lung location: lower lobe of lung Qualified Code(s): J13 - Pneumonia due to Streptococcus pneumoniae (2) Bilateral pulmonary embolism Priority: Primary Status: Acute (3) Anemia Status: Acute Qualifiers: Anemia type: other cause Other causes of anemia: chronic disease, other Qualified Code(s): D63.8 - Anemia in other chronic diseases classified elsewhere (4) COPD (chronic obstructive pulmonary disease) Status: Acute Qualifiers: COPD type: COPD with acute exacerbation Qualified Code(s): J44.1 - Chronic obstructive pulmonary disease with (acute) exacerbation (5) Sepsis Status: Acute Qualifiers: Sepsis type: sepsis due to unspecified organism Qualified Code(s): A41.9 - Sepsis, unspecified organism (6) Severe protein-calorie malnutrition Status: Acute (7) CAD (coronary artery disease) Status: Chronic Qualifiers: Coronary Disease-Associated Artery/Lesion type: [place] artery [place] vs. transplanted heart: [place] heart Associated angina: without angina Qualified Code(s): I25.10 - Atherosclerotic heart disease of [place] coronary artery without angina pectoris (8) GERD (gastroesophageal reflux disease) Priority: Secondary Status: Chronic Qualifiers: Esophagitis presence: esophagitis presence not specified Qualified Code(s) : K21.9 - Gastro-esophageal reflux disease without esophagitis (9) HLD (hyperlipidemia) Priority: Secondary Status: Chronic Qualifiers: Hyperlipidemia type: mixed hyperlipidemia Qualified Code(s): E78.2 - Mixed hyperlipidemia (10) Tobacco abuse Priority: Secondary Status: Acute Procedures/tests Complete & Pending: Procedures Performed prior 72 hours Category Date Time Status CT angio chest [CT] Routine Cat Scan 06/15/17 18:30 Draft Date of admission: 06/14/17 04:02 Primary care physician: Gurinder Fermin MD Hospital course: Ms. Ortiz is a 77 year old female - Time Spent with Patient Total time spent providing and/or coordinating discharge services: 39min - Constitutional Vitals: Temp Pulse Resp BP Pulse Ox 97.7 F 113 18 122/65 92 06/15/17 15:00 06/15/17 15:00 06/15/17 16:11 06/15/17 15:00 06/15/17 16:11 - Attending Attestation I examined this patient and my medical decision-making was reviewed with the Resident Physician on 06/15/17. I agree with the documented findings, disposition and treatment plan as described except to the extent set forth below. Ms Ortiz has been admitted with community acquired pneumonia. She has had bilateral PEs found today. She is afebrile with stable vitals and will be discharged soon with anticoagulation. Exam Alert. Comfortable Heart reg and tachy Lungs with rales L Abd soft No edema Plan D/C when stable on anticoagulation Follow up with PCP.
--- NOTE | 2017-06-15 16:34 | Physician Discharge Referral ---
Home Health/Hosp Referral Info Transfer to: Home Health Attending Provider: William Azul Provider in Charge Post Discharge: PCP - Diagnosis (1) Sepsis Priority: Primary Status: Acute (2) Community acquired pneumonia Priority: Secondary Status: Acute (3) Lung cancer Priority: Secondary Status: Chronic (4) COPD (chronic obstructive pulmonary disease) Priority: Secondary Status: Acute (5) Renal cyst Priority: Secondary Status: Chronic (6) Blood in stool Priority: Secondary Status: Acute (7) Severe protein-calorie malnutrition Priority: Secondary Status: Acute (8) DVT prophylaxis Priority: Secondary Status: Acute - Respiratory Orders Smoking Cessation: Smoking cessation has been advised. For more information, call the [place] Tobacco Quit Line at 0-239-FLRA-NOW. - Diet/Nutrition Diet/Nutrition Orders: Regular - Activity Activity Orders: Up ad karen - Services Needed Following services are medically necessary services: Nursing, Home Health Aide, Physical Therapy, Occupational Therapy Home Care Orders: PT/OT eval and treat - Transfer Medications Prescriptions: Ipratropium/Albuterol Neb [Duoneb] 3 ml IH Q6HR PRN 7 Days inhsol PRN Reason: Wheezing levoFLOXacin [Levaquin] 750 mg PO DAILY #7 tablet Levothyroxine [Synthroid] 75 mcg PO DAILY #30 tablet predniSONE [PredniSONE] 40 mg PO DAILY #6 tablet Home Medications: Aspirin Enteric Coated [Aspirin EC] 81 mg PO DAILY #0 08/17/15 [History] Atorvastatin [Lipitor] 40 mg PO HS #0 08/17/15 [History] Mirtazapine [Remeron] 45 mg PO HS #0 08/17/15 [History] Sertraline [Zoloft] 150 mg PO DAILY #0 08/17/15 [History] Multivitamin [Multi-Day Vitamins] 1 each PO DAILY #30 tablet 08/24/15 [Rx] Albuterol Sulfate [Proair Hfa] 2 puff IH Q4H PRN 06/13/17 [History] Esomeprazole Magnesium [Nexium] 40 mg PO DAILY 06/13/17 [History] Ipratropium [ATROVENT Inhaler] 2 puff IH QID 06/13/17 [History] Linaclotide [Linzess] 290 mcg PO DAILY 06/13/17 [History] Megestrol Acetate [Megace] 40 mg PO TID 06/13/17 [History] clonazePAM [Klonopin] 1 mg PO BID 06/13/17 [History] Ipratropium/Albuterol Neb [Duoneb] 3 ml IH Q6HR PRN 7 Days inhsol 06/15/17 [Rx] Levothyroxine [Synthroid] 75 mcg PO DAILY #30 tablet 06/15/17 [Rx] levoFLOXacin [Levaquin] 750 mg PO DAILY #7 tablet 06/15/17 [Rx] predniSONE [PredniSONE] 40 mg PO DAILY #6 tablet 06/15/17 [Rx] Allergies/Adverse Reactions: 3 Allergy/AdvReac Type Severity Reaction Status Date / Time No Known Allergies Allergy Verified 08/16/15 21:23 Certification: Further, I certify that my clinical findings support that this patient is homebound (i.e. absences from home require considerable and taxing effort and are for medical reasons or synagogue services or infrequently or short duration when for other reasons) because: Homebound Reason: Leaving home requires considerable and taxing effort due to condition, Severity of cardiac or pulmonary status limits activity tolerance Attestation: My signature below is to certify that this patient is under my care and that I, or nurse practitioner, or a physician's law office assistant working with me, has a face-to -face encounter with this patient.
[2017-06-15] MEDS: Mirtazapine 15 MG TABLET PO SCH (20:44)
[2017-06-15] MEDS: *HR* Enoxaparin 60 MG/0.6 ML SYRINGE SQ SCH (20:44)
[2017-06-16] MEDS: Ipratropium/Albuterol Neb 3 ML IH SCH ×5 (04:48→22:41)
[2017-06-16] MEDS: *HR* Enoxaparin 60 MG/0.6 ML SYRINGE SQ SCH ×2 (05:17→17:23)
[2017-06-16] MEDS: Levofloxacin 750 MG/150 ML 750 MG/150 ML BAG IVPB SCH (08:57)
[2017-06-16] MEDS: Multivit/Ca/Min/Fe/FA 1 TAB TABLET PO SCH (08:57)
[2017-06-16] MEDS: predniSONE 20 MG TABLET PO SCH (08:57)
[2017-06-16] MEDS: Aspirin Enteric Coated 81 MG Tablet PO SCH (08:57)
[2017-06-16] MEDS: clonazePAM 1 MG TABLET PO SCH ×2 (08:57→21:34)
[2017-06-16] MEDS: levoFLOXacin 750 MG TABLET PO SCH (09:46)
--- NOTE | 2017-06-16 18:58 | Internal Med Progress Note ---
Date of Encounter: 06/16/17 Time of Encounter: 09:45 - Assessment and plan (1) Bilateral pulmonary embolism Current Visit: Yes Status: Acute Assessment and plan: Currently on Lovenox. She is reluctant to take any blood thinner. Will ask heme to eval and discuss with her as well. I have spent more than 30 minutes discussing this today. (2) Deep venous thrombosis (DVT) of left peroneal vein Current Visit: Yes Status: Acute Assessment and plan: On Lovenox. See above in PE. (3) Pneumonia Current Visit: Yes Status: Suspected Assessment and plan: Completing course of abx. Qualifiers: Pneumonia type: due to Pneumococcus Laterality: right Lung location: lower lobe of lung Qualified Code(s): J13 - Pneumonia due to Streptococcus pneumoniae (4) Anemia Current Visit: Yes Status: Acute Assessment and plan: To have further GI work up as outpatient. Qualifiers: Anemia type: other cause Other causes of anemia: chronic disease, other Qualified Code(s): D63.8 - Anemia in other chronic diseases classified elsewhere (5) COPD (chronic obstructive pulmonary disease) Current Visit: Yes Status: Acute Assessment and plan: COPD with chronic emphysematous changes, acute exacerbation CT demonstrates prominent interstitial lung disease as well The patient has been treated with steroids and antibiotics Qualifiers: COPD type: COPD with acute exacerbation Qualified Code(s): J44.1 - Chronic obstructive pulmonary disease with (acute) exacerbation (6) Sepsis Current Visit: Yes Status: Resolved Assessment and plan: Resolved. Qualifiers: Sepsis type: sepsis due to unspecified organism Qualified Code(s): A41.9 - Sepsis, unspecified organism (7) Severe protein-calorie malnutrition Current Visit: Yes Status: Acute Assessment and plan: Patient admits to +42lbs weight loss in 8 months Attempted megace for weight gain (8) CAD (coronary artery disease) Current Visit: Yes Status: Chronic Assessment and plan: Chronic issue Qualifiers: Coronary Disease-Associated Artery/Lesion type: [place] artery [place] vs. transplanted heart: [place] heart Associated angina: without angina Qualified Code(s): I25.10 - Atherosclerotic heart disease of [place] coronary artery without angina pectoris (9) GERD (gastroesophageal reflux disease) Current Visit: Yes Status: Chronic Assessment and plan: Continue home meds. Qualifiers: Esophagitis presence: esophagitis presence not specified Qualified Code(s) : K21.9 - Gastro-esophageal reflux disease without esophagitis (10) HLD (hyperlipidemia) Current Visit: Yes Status: Chronic Assessment and plan: Continue home meds. Qualifiers: Hyperlipidemia type: mixed hyperlipidemia Qualified Code(s): E78.2 - Mixed hyperlipidemia (11) Tobacco abuse Current Visit: Yes Status: Chronic Assessment and plan: Cessation counselling. - Subjective Interval history: Ms. Ortiz is currently admitted for acute pneumonia. She has subsequently been found to have bilateral PEs. She remains moderate to high risk due to potential for worsening resp status. Ms Ortiz feels OK. She has no CP or worsened dyspnea. No fever or chills. Has many concerns about blood thinners and is reluctant to take them. - Constitutional Vitals: Temp Pulse Resp BP Pulse Ox 97.9 F 114 15 116/67 96 06/16/17 16:08 06/16/17 16:08 06/16/17 16:08 06/16/17 16:08 06/16/17 16:08 General appearance: Present: cachectic, cooperative, A&O X 3, pleasant, underweight, answers questions appropriately - Head Head exam: Present: normocephalic - Eye Eye exam: Present: conjuntiva pink - ENT ENT exam: Present: mucous membranes dry - Respiratory Respiratory exam: Present: decreased breath sounds, rales - Cardiovascular Cardiovascular exam: Present: RRR. Absent: tachycardia - GI/Abdominal GI/Abdominal exam: Present: soft. Absent: tenderness - Extremities Exam Extremities exam: Present: warm. Absent: tenderness - Neurological Exam Neurological exam: Present: alert, oriented X3, no focal deficits - Skin Skin exam: Present: warm. Absent: rash Internal Medicine: Result - Labs CBC & Chem 7: 06/15/17 03:49 06/15/17 03:49 - ABG Interpretation ABG results: PT/INR, D-dimer PT 13.7 Seconds (9.4-12.1) H 06/13/17 21:56 - Impressions Impressions Chest CTA 06/15/17 18:30 IMPRESSION: Acute left upper and lower lobar and segmental pulmonary artery emboli. Right upper lobe segmental and subsegmental pulmonary artery emboli. Straightening of the interventricular septum may reflect right heart strain. RV:LV ratio is 0.89. Right upper lobe consolidation is unchanged and remains consistent with pneumonia. Follow-up imaging is recommended approximately 3 months after completion of treatment, to ensure resolution. Critical results were called by Dr. Aurea Schaffer MD to William Azul on 06/15/2017 at 19:42. D/ / 06/15/2017 19:58:27 Aure[facility] / [facility] Interpreting Provider: Aurea Schaffer MD Consult Discharge Plan - Plan Instructions: Carbidopa/Levodopa (By mouth), Levothyroxine (By mouth), Ipratropium (By breathing), Prednisone (By mouth), Sepsis (DC), Pneumonia (DC) Additional Instructions: Patient should decrease dose of levothyroxine 75 g Patient should follow up with GI as an outpatient Patient continues DuoNeb when necessary every 4-6 hours Patient states 3 more days of prednisone Patient to take 7 more days of antibiotic Referrals: Gurinder Fermin MD [Primary Care Provider] - (REQUEST SENT. PATIENT NEEDS TO CALL AND FOLLOW UP ON APPOINTMENT TIME) Prescriptions: Ipratropium/Albuterol Neb [Duoneb] 3 ml IH Q6HR PRN 7 Days inhsol PRN Reason: Wheezing levoFLOXacin [Levaquin] 750 mg PO DAILY #7 tablet Levothyroxine [Synthroid] 75 mcg PO DAILY #30 tablet predniSONE [PredniSONE] 40 mg PO DAILY #6 tablet
[2017-06-16] MEDS: Mirtazapine 15 MG TABLET PO SCH (21:35)
[2017-06-16] MEDS: *HR* HYDROcodone/Acet 5/325 mg TABLET PO PRN (21:35)
[2017-06-17] MEDS: Ipratropium/Albuterol Neb 3 ML IH SCH ×4 (03:56→22:49)
[2017-06-17 04:32] LABS: Hematocrit 32.2 % (35.3-44.9); Hemoglobin 10.8 g/dL (11.5-15.4); Mean Corpuscular HGB Conc 33.5 g/dL (31.6-35.5); Mean Corpuscular Hemoglobin 30.9 pg (28.0-33.3); Mean Platelet Volume 9.6 fL (9.4-12.4); Platelet Count 308 K/mcL (140-400); Red Cell Distribution Width 13.2 % (11.5-14.5)
[2017-06-17 04:47] LABS: BUN/Creatinine Ratio 20 (6-26); Blood Urea Nitrogen 13 mg/dL (7-20); Calcium 9.4 mg/dL (8.6-10.8); Carbon Dioxide 21 mEq/L (19-29); Chloride 114 mEq/L (98-109); Glucose 85 mg/dL (70-99); Magnesium 1.8 mg/dL (1.6-2.6); Osmolality,Calculated 295 (280-300); Potassium 3.4 mEq/L (3.5-4.5); Sodium 143 mEq/L (136-145); eGFR For African Americans > 60 (> 60); eGFR For Non-African Americans > 60 (> 60)
[2017-06-17] MEDS: *HR* Enoxaparin 60 MG/0.6 ML SYRINGE SQ SCH ×2 (06:29→17:38)
[2017-06-17] MEDS: levoFLOXacin 750 MG TABLET PO SCH (10:48)
[2017-06-17] MEDS: predniSONE 20 MG TABLET PO SCH (10:48)
[2017-06-17] MEDS: Aspirin Enteric Coated 81 MG Tablet PO SCH (10:48)
[2017-06-17] MEDS: Multivit/Ca/Min/Fe/FA 1 TAB TABLET PO SCH (10:49)
[2017-06-17] MEDS: clonazePAM 1 MG TABLET PO SCH ×2 (10:49→21:33)
--- NOTE | 2017-06-17 15:04 | Internal Med Progress Note ---
Date of Encounter: 06/17/17 Time of Encounter: 15:04 - Assessment and plan (1) Bilateral pulmonary embolism Current Visit: Yes Status: Acute Assessment and plan: On Lovenox. Will plan switch to Xarelto tonight. Heme to see for further recommendations as well. (2) Deep venous thrombosis (DVT) of left peroneal vein Current Visit: Yes Status: Acute Assessment and plan: See above plan. (3) Pneumonia Current Visit: Yes Status: Suspected Assessment and plan: Completing course of abx. Qualifiers: Pneumonia type: due to Pneumococcus Laterality: right Lung location: lower lobe of lung Qualified Code(s): J13 - Pneumonia due to Streptococcus pneumoniae (4) Anemia Current Visit: Yes Status: Acute Assessment and plan: To have further GI work up as outpatient. Qualifiers: Anemia type: other cause Other causes of anemia: chronic disease, other Qualified Code(s): D63.8 - Anemia in other chronic diseases classified elsewhere (5) COPD (chronic obstructive pulmonary disease) Current Visit: Yes Status: Acute Assessment and plan: COPD with chronic emphysematous changes, acute exacerbation CT demonstrates prominent interstitial lung disease as well The patient has been treated with steroids and antibiotics Qualifiers: COPD type: COPD with acute exacerbation Qualified Code(s): J44.1 - Chronic obstructive pulmonary disease with (acute) exacerbation (6) Severe protein-calorie malnutrition Current Visit: Yes Status: Acute Assessment and plan: Patient admits to +42lbs weight loss in 8 months Attempted megace for weight gain (7) CAD (coronary artery disease) Current Visit: Yes Status: Chronic Assessment and plan: Chronic issue Qualifiers: Coronary Disease-Associated Artery/Lesion type: [place] artery [place] vs. transplanted heart: [place] heart Associated angina: without angina Qualified Code(s): I25.10 - Atherosclerotic heart disease of [place] coronary artery without angina pectoris (8) GERD (gastroesophageal reflux disease) Current Visit: Yes Status: Chronic Assessment and plan: Continue home meds. Qualifiers: Esophagitis presence: esophagitis presence not specified Qualified Code(s) : K21.9 - Gastro-esophageal reflux disease without esophagitis (9) HLD (hyperlipidemia) Current Visit: Yes Status: Chronic Assessment and plan: Continue home meds. Qualifiers: Hyperlipidemia type: mixed hyperlipidemia Qualified Code(s): E78.2 - Mixed hyperlipidemia (10) Tobacco abuse Current Visit: Yes Status: Chronic Assessment and plan: Cessation counselling. - Subjective Interval history: Ms. Ortiz is currently admitted for acute pneumonia. She has subsequently been found to have bilateral PEs. She remains moderate to high risk due to potential for worsening resp status. Ms Ortiz is OK. She still has concerns about anticoagulant. No CP or SOB. No fever or chills. Awaiting heme to see her for any further plan before discharge. - Constitutional Vitals: Temp Pulse Resp BP Pulse Ox 98.8 F 94 12 124/86 95 06/17/17 11:31 06/17/17 11:31 06/17/17 11:46 06/17/17 11:31 06/17/17 11:46 General appearance: Present: cachectic, cooperative, A&O X 3, pleasant, underweight, answers questions appropriately - Head Head exam: Present: normocephalic - Eye Eye exam: Present: conjuntiva pink - ENT ENT exam: Present: mucous membranes moist - Respiratory Respiratory exam: Present: rhonchi. Absent: rales - Cardiovascular Cardiovascular exam: Present: RRR. Absent: tachycardia - GI/Abdominal GI/Abdominal exam: Present: soft. Absent: tenderness - Extremities Exam Extremities exam: Present: warm. Absent: tenderness - Neurological Exam Neurological exam: Present: alert, oriented X3 - Skin Skin exam: Present: warm. Absent: rash Internal Medicine: Result - Labs CBC & Chem 7: 06/17/17 04:24 06/17/17 04:24 Labs: Short CBC 06/17/17 Range/Units 04:24 WBC 9.1 (4.3-11.1) K/mcL Hgb 10.8 L D (11.5-15.4) g/dL Hct 32.2 L (35.3-44.9) % Plt Count 308 (140-400) K/mcL BMP 06/17/17 04:24 Sodium 143 Potassium 3.4 L Chloride 114 H Carbon Dioxide 21 BUN 13 Creatinine 0.65 Glucose 85 Calcium 9.4 - ABG Interpretation ABG results: PT/INR, D-dimer PT 13.7 Seconds (9.4-12.1) H 06/13/17 21:56 Consult Discharge Plan - Plan Instructions: Carbidopa/Levodopa (By mouth), Levothyroxine (By mouth), Ipratropium (By breathing), Prednisone (By mouth), Sepsis (DC), Pneumonia (DC) Additional Instructions: Patient should decrease dose of levothyroxine 75 g Patient should follow up with GI as an outpatient Patient continues DuoNeb when necessary every 4-6 hours Patient states 3 more days of prednisone Patient to take 7 more days of antibiotic Referrals: Gurinder Fermin MD [Primary Care Provider] - (REQUEST SENT. PATIENT NEEDS TO CALL AND FOLLOW UP ON APPOINTMENT TIME) Prescriptions: Ipratropium/Albuterol Neb [Duoneb] 3 ml IH Q6HR PRN 7 Days inhsol PRN Reason: Wheezing levoFLOXacin [Levaquin] 750 mg PO DAILY #7 tablet Levothyroxine [Synthroid] 75 mcg PO DAILY #30 tablet predniSONE [PredniSONE] 40 mg PO DAILY #6 tablet
--- NOTE | 2017-06-17 18:06 | Oncology Inp Consult Note ---
Date of Encounter: 06/17/17 Time of Encounter: 18:04 Assessment and Plan (1) Lung cancer Status: Chronic Assessment and plan: Was treated as mentioned above currently no evidence of recurrence. We will continue to watch her closely especially given her new PE Qualifiers: Laterality: right Lung location: unspecified part of lung Qualified Code( s): C34.91 - Malignant neoplasm of unspecified part of right bronchus or lung (2) Community acquired pneumonia Status: Acute Assessment and plan: Currently on Levaquin 750 mg by mouth. Renal function normal Qualifiers: Laterality: right Lung location: unspecified part of lung Qualified Code( s): J18.9 - Pneumonia, unspecified organism (3) Bilateral pulmonary embolism Status: Acute Assessment and plan: Bilateral PE secondary to left lower extremity DVT According to her she has more sedentary day of life We will do a hypercoagulable workup Recommend Elequis 5 mg by mouth twice a day after 10 mg twice a day for 7 days Duration of anticoagulation for at least one year Anticoagulation could be challenging especially if she continued to have GI bleed (4) Anemia Status: Acute Assessment and plan: hemoglobin 10.8 and MCV 92. TSH mildly suppressed at 0.19 this admission Do anemia workup. She claims she has GI bleed twice a week for couple years. Colonoscopy as an outpatient. She also has constipation She Requests Percocet for her pain. I advised her about increased constipation with narcotics Qualifiers: Anemia type: other cause Other causes of anemia: chronic disease, other Qualified Code(s): D63.8 - Anemia in other chronic diseases classified elsewhere - Data of Consult Patient: known to practice within the last 3 years Requesting Physician: William Azul DO Primary Care Provider: Gurinder Fermin MD - Consult Narrative Reason for consult: Bilateral PE, right upper lobe pneumonia History of present illness: 77-year-old female hospitalized with right upper lobe pneumonia and bilateral PE. The PE secondary to left lower extremity DVT CT chest and CT abdomen and pelvis 06/14/2017 also showed right lung pneumonia and left lung ground glass opacities. Abdomen and pelvis negative She is currently on Lovenox 50 mg subcutaneous twice a day and aspirin 81 mg a day For pneumonia Levaquin 750 mg by mouth daily His mild anemia is 2014 and current hemoglobin 10.8. Renal function and liver enzymes normal Oncological history Right lung cancer stage I Ms. Ortiz had COPD. She was evaluated by Malou Guevara CNP. She had a chest x -ray followed by chest CT at [facility] 12/13/12, which showed a noncalcified 2 cm nodule in the right lower lobe. Following that, she was a little afraid and she put it off for a while. Finally, she decided to have it removed and she had a PET scan on 03/11/2013 which showed a speculated mass, SUV 6.1. No mediastinal adenopathy. No other focus of uptake. Right muscle sparing thoracotomy with right lower lobectomy and right middle lobectomy, mediastinal lymph node sampling, aspiration of mucous plugging 2012. Pathology report showed tumor size 2 cm grade 3, poorly differentiated squamous cell carcinoma, margins clear. Lymph node station 9, 11, 7, 2 and 4 all negative and she recovered well from surgery. Pulmonary function test done 03/11/2013 showed FEV1 of 1.99 L. FVC 2.8. Past Medical History Medical history: COPD, Hyperlipidemia. 50 pound weight loss colitis. She followed up with Dr. Teixeira history of ataxia evaluated by Dr. Montoya in 2013 Family History: Family history includes: Uncle with prostate cancer. Maternal grandfather colon cancer. Mother had stroke and cerebral hemorrhage. Six siblings, four children, one due to spina bifida. Family history significant for thyroid disease and cholesterol problem. Past Med Surg Social Fam HX - Past Medical History Medical history: cancer, COPD, coronary artery disease, GERD, hyperlipidemia, thyroid disease Psychiatric history: anxiety, depression - Past Surgical History Surgical History: cholecystectomy, hysterectomy - Social History Smoking Status: Current every day smoker Smokeless Tobacco Status: No Alcohol use: none Drug use: marijuana - Family History Mother Living Status: Hx Family Neurologic Disorders: Yes (CVA) Medications and Allergies Aspirin Enteric Coated [Aspirin EC] 81 mg PO DAILY #0 08/17/15 [History] Atorvastatin [Lipitor] 40 mg PO HS #0 08/17/15 [History] Mirtazapine [Remeron] 45 mg PO HS #0 08/17/15 [History] Sertraline [Zoloft] 150 mg PO DAILY #0 08/17/15 [History] Multivitamin [Multi-Day Vitamins] 1 each PO DAILY #30 tablet 08/24/15 [Rx] Albuterol Sulfate [Proair Hfa] 2 puff IH Q4H PRN 06/13/17 [History] Esomeprazole Magnesium [Nexium] 40 mg PO DAILY 06/13/17 [History] Ipratropium [ATROVENT Inhaler] 2 puff IH QID 06/13/17 [History] Linaclotide [Linzess] 290 mcg PO DAILY 06/13/17 [History] Megestrol Acetate [Megace] 40 mg PO TID 06/13/17 [History] clonazePAM [Klonopin] 1 mg PO BID 06/13/17 [History] Ipratropium/Albuterol Neb [Duoneb] 3 ml IH Q6HR PRN 7 Days inhsol 06/15/17 [Rx] Levothyroxine [Synthroid] 75 mcg PO DAILY #30 tablet 06/15/17 [Rx] levoFLOXacin [Levaquin] 750 mg PO DAILY #7 tablet 06/15/17 [Rx] predniSONE [PredniSONE] 40 mg PO DAILY #6 tablet 06/15/17 [Rx] 3 Allergy/AdvReac Type Severity Reaction Status Date / Time No Known Allergies Allergy Verified 08/16/15 21:23 Review of systems: Constipation. Also GI bleed off and on which she climbs twice a week. She has not had one since this admission Oncology - Exam - Constitutional Vitals: Temp Pulse Resp BP Pulse Ox 98.3 F 78 14 115/67 92 06/17/17 16:59 06/17/17 16:59 06/17/17 16:59 06/17/17 16:59 06/17/17 16:59 Exam: Conscious alert and oriented Lungs air entry decreased right base Cough. Heart S1 and S2 heard regular rate rhythm Abdomen soft pulse was present nontender Extremities no major edema GAS [employer]TER conscious alert and oriented no motor or sensory deficit Oncology - Results Labs: Short CBC 06/17/17 Range/Units 04:24 WBC 9.1 (4.3-11.1) K/mcL Hgb 10.8 L D (11.5-15.4) g/dL Hct 32.2 L (35.3-44.9) % Plt Count 308 (140-400) K/mcL BMP 06/17/17 04:24 Sodium 143 Potassium 3.4 L Chloride 114 H Carbon Dioxide 21 BUN 13 Creatinine 0.65 Glucose 85 Calcium 9.4 Consult Discharge Plan - Plan Instructions: Carbidopa/Levodopa (By mouth), Levothyroxine (By mouth), Ipratropium (By breathing), Prednisone (By mouth), Sepsis (DC), Pneumonia (DC) Additional Instructions: Patient should decrease dose of levothyroxine 75 g Patient should follow up with GI as an outpatient Patient continues DuoNeb when necessary every 4-6 hours Patient states 3 more days of prednisone Patient to take 7 more days of antibiotic Referrals: Gurinder Fermin MD [Primary Care Provider] - (REQUEST SENT. PATIENT NEEDS TO CALL AND FOLLOW UP ON APPOINTMENT TIME) Prescriptions: Ipratropium/Albuterol Neb [Duoneb] 3 ml IH Q6HR PRN 7 Days inhsol PRN Reason: Wheezing levoFLOXacin [Levaquin] 750 mg PO DAILY #7 tablet Levothyroxine [Synthroid] 75 mcg PO DAILY #30 tablet predniSONE [PredniSONE] 40 mg PO DAILY #6 tablet
[2017-06-17 19:44] LABS: % Iron Saturation 12 % (15-50); Iron 28 mcg/dL (50-170); Transferrin 166 mg/dL (180-382)
[2017-06-17 20:04] LABS: Ferritin 300 ng/ml (5-204)
[2017-06-17] MEDS: Mirtazapine 15 MG TABLET PO SCH (21:32)
[2017-06-18] MEDS: Ipratropium/Albuterol Neb 3 ML IH SCH ×2 (04:01→11:03)
[2017-06-18] MEDS: *HR* Enoxaparin 60 MG/0.6 ML SYRINGE SQ SCH (07:03)
[2017-06-18 07:19] VITALS: BP 138/76
[2017-06-18] MEDS ORDERED: Saline Nasal Spray 44 ML BOTTLE NS PRN (08:39)
[2017-06-18] MEDS: Multivit/Ca/Min/Fe/FA 1 TAB TABLET PO SCH (09:10)
[2017-06-18] MEDS: levoFLOXacin 750 MG TABLET PO SCH (09:10)
[2017-06-18] MEDS: clonazePAM 1 MG TABLET PO SCH (09:10)
[2017-06-18] MEDS: Aspirin Enteric Coated 81 MG Tablet PO SCH (09:11)
[2017-06-18] MEDS ORDERED: APIXABAN 5 MG TABLET PO SCH (13:00)
--- NOTE | 2017-06-18 17:45 | Internal Med Progress Note ---
Date of Encounter: 06/18/17 Time of Encounter: 08:00 - Assessment and plan (1) Bilateral pulmonary embolism Status: Acute Assessment and plan: Switching to Eliquis prior to discharge today. (2) Deep venous thrombosis (DVT) of left peroneal vein Status: Acute Assessment and plan: See above plan. (3) Pneumonia Status: Suspected Assessment and plan: Completing course of abx. Qualifiers: Pneumonia type: due to Pneumococcus Laterality: right Lung location: lower lobe of lung Qualified Code(s): J13 - Pneumonia due to Streptococcus pneumoniae (4) Anemia Status: Acute Assessment and plan: To have further GI work up as outpatient. Monitor for increased bleeding on Eliquis. Qualifiers: Anemia type: other cause Other causes of anemia: chronic disease, other Qualified Code(s): D63.8 - Anemia in other chronic diseases classified elsewhere (5) COPD (chronic obstructive pulmonary disease) Status: Acute Assessment and plan: COPD with chronic emphysematous changes, acute exacerbation CT demonstrates prominent interstitial lung disease as well The patient has been treated with steroids and antibiotics Qualifiers: COPD type: COPD with acute exacerbation Qualified Code(s): J44.1 - Chronic obstructive pulmonary disease with (acute) exacerbation (6) Severe protein-calorie malnutrition Status: Acute Assessment and plan: Patient admits to +42lbs weight loss in 8 months Megace held now - ? thrombotic (7) CAD (coronary artery disease) Status: Chronic Assessment and plan: Chronic issue Qualifiers: Coronary Disease-Associated Artery/Lesion type: [place] artery [place] vs. transplanted heart: [place] heart Associated angina: without angina Qualified Code(s): I25.10 - Atherosclerotic heart disease of [place] coronary artery without angina pectoris (8) GERD (gastroesophageal reflux disease) Status: Chronic Assessment and plan: Continue home meds. Qualifiers: Esophagitis presence: esophagitis presence not specified Qualified Code(s) : K21.9 - Gastro-esophageal reflux disease without esophagitis (9) HLD (hyperlipidemia) Status: Chronic Assessment and plan: Continue home meds. Qualifiers: Hyperlipidemia type: mixed hyperlipidemia Qualified Code(s): E78.2 - Mixed hyperlipidemia (10) Tobacco abuse Status: Chronic Assessment and plan: Cessation counselling. - Subjective Interval history: Ms. Ortiz is currently admitted for acute pneumonia. She has subsequently been found to have bilateral PEs. She remains moderate to high risk due to potential for worsening resp status. Ms Ortiz feels OK. No further CP or SOB. Still coughing. Ready to go home today with Eliquis. - Constitutional Vitals: Temp Pulse Resp BP Pulse Ox 97.1 F L 93 15 138/76 95 06/18/17 07:15 06/18/17 07:15 06/18/17 07:15 06/18/17 07:15 06/18/17 07:15 General appearance: Present: cachectic, cooperative, A&O X 3, pleasant, underweight, answers questions appropriately - Head Head exam: Present: normocephalic - Eye Eye exam: Present: conjuntiva pink - ENT ENT exam: Present: mucous membranes moist - Respiratory Respiratory exam: Present: rhonchi - Cardiovascular Cardiovascular exam: Present: RRR. Absent: tachycardia - GI/Abdominal GI/Abdominal exam: Present: soft. Absent: tenderness - Extremities Exam Extremities exam: Present: warm. Absent: tenderness - Neurological Exam Neurological exam: Present: alert, oriented X3 - Skin Skin exam: Present: warm Internal Medicine: Result - Labs CBC & Chem 7: 06/17/17 04:24 06/17/17 04:24 - ABG Interpretation ABG results: PT/INR, D-dimer PT 13.7 Seconds (9.4-12.1) H 06/13/17 21:56 D-Dimer 3796 ng/mLFEU (0-500) H 06/17/17 19:18 - Impressions Impressions Echocardiogram Limited Views 06/18/17 11:30 Impressions: LVEF 60%. Normal left ventricular size and systolic function. Normal right ventricular size and function. Left Ventricular Wall Motion: Rest Echo Findings The mid anterior septal and basal anterior septal smith were not visualized. All other wall segments showed normal motion. Findings: Study Quality * Technically adequate exam. ECG Findings * Normal sinus rhythm. Right Ventricle * Normal right ventricular structure and function. Left Ventricle * LVEF 60%. Tricuspid Valve * Tricuspid valve not well visualized. * Trace tricuspid regurgitation. * Estimated RA pressure is 3 mmHg. IVC * The IVC is not dilated. Consult Discharge Plan - Plan Instructions: Carbidopa/Levodopa (By mouth), Levothyroxine (By mouth), Ipratropium (By breathing), Prednisone (By mouth), Sepsis (DC), Pneumonia (DC) Additional Instructions: Patient should decrease dose of levothyroxine 75 g Patient should follow up with GI as an outpatient Patient continues DuoNeb when necessary every 4-6 hours Patient states 3 more days of prednisone Patient to take 7 more days of antibiotic Referrals: Gurinder Fermin MD [Primary Care Provider] - 06/21/17 2:25 pm () Prescriptions: Ipratropium/Albuterol Neb [Duoneb] 3 ml IH Q6HR PRN 7 Days inhsol PRN Reason: Wheezing Apixaban [Eliquis] 5 mg PO BID #70 tablet levoFLOXacin [Levaquin] 750 mg PO DAILY #7 tablet Levothyroxine [Synthroid] 75 mcg PO DAILY #30 tablet predniSONE [PredniSONE] 40 mg PO DAILY #6 tablet
[2017-06-19 12:32] LABS: Kappa Qnt Free Light Chains 7.18 mg/dL (0.33-1.94); Lambda Qnt Free Light Chains 1.04 mg/dL (0.57-2.63)
[2017-06-19 14:55] LABS: Homocysteine 7 umol/L (<=10)
[2017-06-19 20:29] LABS: APTT (LE Anticoag) 45 sec (32-48); Diluted Russell Viper Venom 35 sec (33-44); PT (LE-Anticoag) 14.4 sec (12.0-15.5)
[2017-06-20 07:22] LABS: Alpha 2 Globulin (PEP) 1.18 g/dL (0.48-1.05)
[2017-06-20 09:51] LABS: Protein C, Functional 135 % (83-168); Protein S, Functional 85 % (57-131)
[2017-06-20 09:59] LABS: IFE Reflexed NOT DONE
[2017-06-21 08:37] LABS: Antithrombin III, Activity 110 % (76-128); MMA (VIT B12 STATUS) 0.18 umol/L (0.00-0.40)
[2017-06-21 13:28] LABS: FACV Specimen WHOLE BLOOD
[2017-06-21 15:07] LABS: Fac V Leiden R506Q Mut Result HETEROZYGOUS
[2017-06-21 23:15] LABS: Prothrombin G20210A Specimen WHOLE BLOOD
[2017-06-22 07:36] LABS: Prothrombin G20210A Mut Result NEGATIVE
== END 2017-06-18 14:28 | disposition home health service (06) | DRG 871 ==
LOC: 2NENU 16:20 → EMEROO 16:20 → 2NENU 21:02
PROVIDERS: ADMIT Hospitalist; ATTEND Internal Medicine

== ENCOUNTER 2020-04-03 13:40 | Inpatient (IN) ==
[2020-04-03 14:25] LABS: Basophils % 0.1 %; Eosinophils % 0.1 %; Hematocrit 42.2 % (35.3-44.9); Hemoglobin 13.7 g/dL (11.5-15.4); Immature Granulocytes % 0.7 % (0-4); Lymphocytes # 1.3 K/mcL (0.6-4.6); Lymphocytes % 6.5 %; Mean Corpuscular HGB Conc 32.5 g/dL (31.6-35.5); Mean Corpuscular Hemoglobin 30.4 pg (28.0-33.3); Mean Corpuscular Volume 93.6 fL (83.0-100.0); Mean Platelet Volume 10.7 fL (9.4-12.4); Monocytes # 0.9 K/mcL (0.0-1.3); Monocytes % 4.3 %; Neutrophils # 17.8 K/mcL (1.6-8.9); Platelet Count 289 K/mcL (140-400); Red Blood Count 4.51 M/mcL (3.82-4.97); Red Cell Distribution Width 13.5 % (11.5-14.5); Segmented Neutrophils % 88.3 %; White Blood Count 20.2 K/mcL (4.3-11.1)
[2020-04-03 14:31] LABS: INR 1.2; Prothrombin Time 13.3 Seconds (9.4-12.1)
[2020-04-03 14:34] LABS: Activated Partial Thrombo Time 25.6 Seconds (26.0-36.0)
[2020-04-03 14:37] LABS: Bacteria,Urine Many per hpf (None-Few); Bilirubin,Urine Negative (Negative); Blood,Urine Moderate (Negative); Clarity,Urine Clear (Clear); Color,Urine Light-Yellow (Yellow); Glucose,Urine (UA) Normal (Normal); Hyaline Casts,Urine Few per lpf (None Seen); Ketones,Urine Negative (Negative); Leukocyte Esterase,Urine Small (Negative); Mucus,Urine Few per lpf (None-Few); Nitrite,Urine Positive (Negative); Protein,Urine 50 mg/dL (Neg-Trace); RBC,Urine 0-3 per hpf (0-3); Specific Gravity,Urine 1.022 (1.010-1.025); Squamous Epithelial Cell,Urine Few per hpf (None-Few); Urobilinogen,Urine Normal (Normal)
[2020-04-03 14:54] LABS: Alanine Aminotransferase 13 Units/L (7-52); Albumin 3.7 g/dL (3.5-5.7); Albumin/Globulin Ratio 1.4 (1.1-2.2); Alkaline Phosphatase 77 Units/L (34-104); Aspartate Amino Transferase 18 Units/L (13-39); BUN/Creatinine Ratio 24 (6-26); Bilirubin,Direct 0.1 mg/dL (0.0-0.2); Bilirubin,Indirect 0.4 mg/dL (0.0-1.0); Bilirubin,Total 0.5 mg/dL (0.3-1.0); Blood Urea Nitrogen 18 mg/dL (8-23); Calcium 9.5 mg/dL (8.6-10.3); Carbon Dioxide 22 mEq/L (23-29); Chloride 107 mEq/L (98-107); Globulin 2.7 g/dL (2.4-3.5); Glucose 102 mg/dL (70-105); Lipase 9 Units/L (11-82); Osmolality,Calculated 290 (280-300); Potassium 3.7 mEq/L (3.5-5.1); Sodium 139 mEq/L (136-145); Total Protein 6.4 g/dL (6.4-8.9); Troponin I 0.24 ng/mL (< 0.04); eGFR For African Americans > 60 (> 60); eGFR For Non-African Americans > 60 (> 60)
[2020-04-03] MEDS ORDERED: cefTRIAXone 1,000 MG in Water for inj. (sterile) 10 ML IVP ONE (14:56)
[2020-04-03] MEDS ORDERED: MetroNIDAZOLE 500 MG/100 ML 500 MG/100 ML BAG IVPB ONE (15:13)
[2020-04-03] MEDS ORDERED: Aspirin 81 MG TAB.CHEW PO STA (15:39)
[2020-04-03] MEDS ORDERED: Naloxone 0.4 MG/ML INJ IVP PRN (16:15)
[2020-04-03] MEDS ORDERED: Ondansetron 4 MG/2 ML VIAL IVP PRN (16:20)
[2020-04-03] MEDS ORDERED: Perflutren Lipid Microsphere 1.3 ML in 0.9 % Sodium Chloride 8.7 ML IVP PRN (16:24)
[2020-04-03] MEDS ORDERED: *HR* Heparin 5,000 UNIT/ML VIAL IVP PRN ×2 (16:26)
[2020-04-03] MEDS: 0.9 % Sodium Chloride 1,000 ML IVC SCH (18:37)
[2020-04-03] MEDS: Heparin 25,000UNIT/250ML 1/2NS 25,000 UNIT/250 ML IV.SOLN IVC SCH (18:43)
[2020-04-03 20:23] LABS: Hematocrit 37.2 % (35.3-44.9); Hemoglobin 12.7 g/dL (11.5-15.4)
[2020-04-03] MEDS: Mirtazapine 15 MG TABLET PO SCH (20:28)
[2020-04-03] MEDS: MetroNIDAZOLE 500 MG/100 ML 500 MG/100 ML BAG IVPB SCH ×2 (23:02→23:05)
[2020-04-04 01:34] LABS: Basophils % 0.2 %; Eosinophils % 0.2 %; Hematocrit 39.2 % (35.3-44.9); Hematocrit 41.3 % (35.3-44.9); Hemoglobin 13.1 g/dL (11.5-15.4); Hemoglobin 13.3 g/dL (11.5-15.4); Immature Granulocytes % 0.5 % (0-4); Lymphocytes # 1.3 K/mcL (0.6-4.6); Lymphocytes % 8.1 %; Mean Corpuscular HGB Conc 32.2 g/dL (31.6-35.5); Mean Corpuscular Hemoglobin 31.7 pg (28.0-33.3); Mean Corpuscular Volume 98.6 fL (83.0-100.0); Mean Platelet Volume 10.9 fL (9.4-12.4); Monocytes # 0.6 K/mcL (0.0-1.3); Monocytes % 3.9 %; Neutrophils # 14.4 K/mcL (1.6-8.9); Platelet Count 243 K/mcL (140-400); Red Blood Count 4.19 M/mcL (3.82-4.97); Red Cell Distribution Width 13.2 % (11.5-14.5); Segmented Neutrophils % 87.1 %; White Blood Count 16.5 K/mcL (4.3-11.1)
[2020-04-04 01:55] LABS: BUN/Creatinine Ratio 25 (6-26); Blood Urea Nitrogen 13 mg/dL (8-23); Calcium 9.1 mg/dL (8.6-10.3); Carbon Dioxide 18 mEq/L (23-29); Chloride 110 mEq/L (98-107); Glucose 89 mg/dL (70-105); Osmolality,Calculated 288 (280-300); Potassium 3.3 mEq/L (3.5-5.1); Sodium 139 mEq/L (136-145); eGFR For African Americans > 60 (> 60); eGFR For Non-African Americans > 60 (> 60)
[2020-04-04 08:17] LABS: Hematocrit 37.2 % (35.3-44.9); Hemoglobin 12.3 g/dL (11.5-15.4)
[2020-04-04] MEDS: Aspirin Enteric Coated 81 MG Tablet PO SCH (08:46)
[2020-04-04] MEDS: Multivit/Ca/Min/Fe/FA 1 TAB TABLET PO SCH (08:46)
[2020-04-04] MEDS: MetroNIDAZOLE 500 MG/100 ML 500 MG/100 ML BAG IVPB SCH ×2 (08:47→15:00)
[2020-04-04] MEDS: 0.9 % Sodium Chloride 1,000 ML IVC SCH (08:47)
[2020-04-04 12:37] LABS: Adenovirus F 40/41 PCR Not detected (Not detect); Astrovirus PCR Not detected (Not detect); C.difficile Toxin A/B Gene PCR Not detected (Not detect); Campylobacter by PCR Not detected (Not detect); Cryptosporidium by PCR Not detected (Not detect); Cyclospora cayetanensis PCR Not detected (Not detect); E. coli O157 by PCR Not detected (Not detect); Entamoeba histolytica PCR Not detected (Not detect); Enteroaggregative E.coli(EAEC) Not detected (Not detect); Enteropathogenic E.coli(EPEC) Not detected (Not detect); Enterotoxigenic E.coli (ETEC) Not detected (Not detect); Giardia lamblia PCR Not detected (Not detect); Norovirus GI/GII PCR Not detected (Not detect); Plesiomonas shigelloides PCR Not detected (Not detect); Rotavirus A PCR Not detected (Not detect); Salmonella PCR Not detected (Not detect); Sapovirus PCR Not detected (Not detect); Shig/EnteroinvasiveE coli EIEC Not detected (Not detect); Shigalike tox-prod E coli STEC Not detected (Not detect); Vibrio PCR Not detected (Not detect); Vibrio cholerae PCR Not detected (Not detect); Yersinia enterocolitica PCR Not detected (Not detect)
[2020-04-04] MEDS: Mirtazapine 15 MG TABLET PO SCH (20:58)
[2020-04-04] MEDS: Metoprolol XL (24 HR) Succ 25 MG TAB.ER.24H PO SCH (20:59)
[2020-04-05] MEDS: MetroNIDAZOLE 500 MG/100 ML 500 MG/100 ML BAG IVPB SCH ×3 (00:09→16:04)
[2020-04-05] MEDS: Heparin 25,000UNIT/250ML 1/2NS 25,000 UNIT/250 ML IV.SOLN IVC SCH (05:42)
[2020-04-05 06:57] LABS: BUN/Creatinine Ratio 14 (6-26); Blood Urea Nitrogen 8 mg/dL (8-23); Calcium 8.6 mg/dL (8.6-10.3); Carbon Dioxide 18 mEq/L (23-29); Chloride 115 mEq/L (98-107); Glucose 62 mg/dL (70-105); Osmolality,Calculated 290 (280-300); Potassium 3.3 mEq/L (3.5-5.1); Sodium 142 mEq/L (136-145); eGFR For African Americans > 60 (> 60); eGFR For Non-African Americans > 60 (> 60)
[2020-04-05 08:23] LABS: Hematocrit 36.8 % (35.3-44.9); Hemoglobin 12.1 g/dL (11.5-15.4); Mean Corpuscular HGB Conc 32.9 g/dL (31.6-35.5); Mean Corpuscular Hemoglobin 30.8 pg (28.0-33.3); Mean Corpuscular Volume 93.6 fL (83.0-100.0); Mean Platelet Volume 10.8 fL (9.4-12.4); Platelet Count 260 K/mcL (140-400); Red Blood Count 3.93 M/mcL (3.82-4.97); Red Cell Distribution Width 13.2 % (11.5-14.5); White Blood Count 10.1 K/mcL (4.3-11.1)
[2020-04-05] MEDS: lisinopriL 5 MG TABLET PO SCH (08:50)
[2020-04-05] MEDS: Metoprolol XL (24 HR) Succ 25 MG TAB.ER.24H PO SCH ×2 (08:50→20:39)
[2020-04-05] MEDS: Aspirin Enteric Coated 81 MG Tablet PO SCH (08:50)
[2020-04-05] MEDS: Multivit/Ca/Min/Fe/FA 1 TAB TABLET PO SCH (08:50)
[2020-04-05] MEDS: *HR* Heparin 5,000 UNIT/ML VIAL SQ SCH (17:28)
[2020-04-05] MEDS: Budesonide/Formoterol 160/4.5 1 PUFF INH IH SCH (19:44)
[2020-04-05] MEDS: Mirtazapine 15 MG TABLET PO SCH (20:54)
[2020-04-06] MEDS: MetroNIDAZOLE 500 MG/100 ML 500 MG/100 ML BAG IVPB SCH ×2 (00:42→07:56)
[2020-04-06] MEDS: *HR* Heparin 5,000 UNIT/ML VIAL SQ SCH (05:47)
[2020-04-06 06:07] LABS: Hematocrit 34.9 % (35.3-44.9); Hemoglobin 11.3 g/dL (11.5-15.4); Mean Corpuscular HGB Conc 32.4 g/dL (31.6-35.5); Mean Corpuscular Hemoglobin 31.3 pg (28.0-33.3); Mean Corpuscular Volume 96.7 fL (83.0-100.0); Platelet Count 204 K/mcL (140-400); Red Blood Count 3.61 M/mcL (3.82-4.97); Red Cell Distribution Width 13.2 % (11.5-14.5); White Blood Count 7.4 K/mcL (4.3-11.1)
[2020-04-06 06:25] LABS: BUN/Creatinine Ratio 12 (6-26); Blood Urea Nitrogen 9 mg/dL (8-23); Calcium 8.8 mg/dL (8.6-10.3); Carbon Dioxide 19 mEq/L (23-29); Chloride 115 mEq/L (98-107); Glucose 102 mg/dL (70-105); Osmolality,Calculated 291 (280-300); Potassium 3.7 mEq/L (3.5-5.1); Sodium 141 mEq/L (136-145); eGFR For African Americans > 60 (> 60); eGFR For Non-African Americans > 60 (> 60)
[2020-04-06] MEDS: Budesonide/Formoterol 160/4.5 1 PUFF INH IH SCH (07:11)
[2020-04-06] MEDS: Multivit/Ca/Min/Fe/FA 1 TAB TABLET PO SCH (07:55)
[2020-04-06] MEDS: Aspirin Enteric Coated 81 MG Tablet PO SCH (07:55)
[2020-04-06] MEDS: Metoprolol XL (24 HR) Succ 25 MG TAB.ER.24H PO SCH (07:55)
[2020-04-06] MEDS: lisinopriL 5 MG TABLET PO SCH (07:56)
[2020-04-06] MEDS ORDERED: Potassium Phosphate 44 MEQ in 0.9 % Sodium Chloride 250 ML IVPB ONE (08:27)
[2020-04-06] MEDS ORDERED: D5% in 0.45% NACL 1,000 ML IVC SCH (08:30)
[2020-04-06] MEDS ORDERED: Sodium Bicarbonate 150 MEQ in D5% in Water 1,000 ML IVC SCH (08:45)
[2020-04-06 10:28] VITALS: BP 108/53
== END 2020-04-06 15:25 | disposition home health service (06) | DRG 391 ==
LOC: EMEROOARM 13:40 → 3ANU 13:40 → SUATTDRO 04-04 13:54
PROVIDERS: ADMIT Internal Medicine; ATTEND Internal Medicine